=== PATIENT | female | born 1995 | race Caucasian/White ===

== ENCOUNTER → 2018-03-11 15:56 | Outpatient (CLI) | payer BC, SELFPAY ==
[2018-03-11 16:31] LABS: Absolute Lymphocyte Count 1.52 X10^3/ul (0.83-4.51); Absolute Neutrophil Count 5.3 X10^3/uL (2.0-7.7); Basophil# 0.02 X10^3/uL; Basophil% 0.3 % (0-1); Eosinophil# 0.07 X10^3/uL; Hematocrit 39.1 % (37-47); Hemoglobin 13.7 g/dl (12.0-15.0); Lymphocyte # 1.52 X10^3/ul (4.0); Lymphocyte % 20.7 % (19-41); Mean Corpuscular Hgb 29.9 pg (27.0-32.0); Mean Corpuscular Volume 85.4 fL (81-99); Mean Platelet Vol. 10.1 fl (6.2-12.0); Monocyte# 0.41 X10^3/uL; Monocyte% 5.6 % (0-10); Neutrophil # 5.33 X10^3/uL (2.7-7.7); Neutrophil % 72.3 % (47-70); Platelet Count 239 K/mm3 (150-450); RBC Distribution Width CV 12.9 % (11.6-14.6); RBC Distribution Width SD 39.6 fl (35.1-43.9); Red Blood Count 4.58 M/mm3 (4.2-5.4); White Blood Count 7.4 K/mm3 (4.4-11.0)
[2018-03-11 16:36] LABS: POSITIVE COUNT NO; POSITIVE DIFFERENTIAL NO; POSITIVE MORPHOLOGY NO
[2018-03-11 17:32] LABS: HIV - WCH Non-Reactive (Nonreactive); Rubella IgG 75.6 IU/mL
[2018-03-13 14:37] LABS: HEPATITIS B SURFACE AG Negative (Negative)
[2018-03-15 05:19] LABS: Rapid Plasmin Reagin (RPR) NONREACTIVE (NONREACTIVE)
== END ==
PROVIDERS: Family Provider Family Medicine; PCP Family Medicine; Visit Provider Obstetrics & Gynecology
DX: Z34.90 Encounter for supervision of normal pregnancy, unspecified, unspecified trimester (principal)
CPT/HCPCS: 36415; 85025; 86592; 86703; 86762; 86850; 86900; 87340

== ENCOUNTER → 2018-03-11 18:06 | Outpatient (CLI) | payer BC, SELFPAY ==
[2018-03-11 20:10] LABS: Chlamydia Trachomatis by PCR Negative (Negative); Neisserai gonorrhoeae by PCR Negative (Negative); Probe Check PASS; Sample Adequacy Control PASS; Specimen Processing Control PASS
== END ==
PROVIDERS: Family Provider Family Medicine; PCP Family Medicine; Visit Provider Obstetrics & Gynecology
DX: Z34.90 Encounter for supervision of normal pregnancy, unspecified, unspecified trimester (principal)
CPT/HCPCS: 87086; 87491; 87591

== ENCOUNTER → 2018-04-09 11:19 | Outpatient (CLI) | payer BC, SELFPAY | PROVIDERS: Family Provider Family Medicine; PCP Family Medicine; Visit Provider Obstetrics & Gynecology | DX: Z31.5 Encounter for procreative genetic counseling (principal) | CPT/HCPCS: 36415 ==

== ENCOUNTER → 2018-04-23 18:19 | Outpatient (CLI) | payer BC, SELFPAY | PROVIDERS: Family Provider Family Medicine; PCP Family Medicine; Visit Provider Nurse Practitioner Women's Health | DX: O26.899 Other specified pregnancy related conditions, unspecified trimester (principal); R30.0 Dysuria; Z3A.00 Weeks of gestation of pregnancy not specified | CPT/HCPCS: 87086 ==

== ENCOUNTER → 2018-05-08 12:05 | Outpatient (CLI) | payer BC, SELFPAY | PROVIDERS: Family Provider Family Medicine; PCP Family Medicine; Visit Provider Nurse Practitioner Women's Health | DX: Z36.9 Encounter for antenatal screening, unspecified (principal) | CPT/HCPCS: 36415 ==

== ENCOUNTER → 2018-05-21 12:20 | Outpatient (CLI) | payer BC, SELFPAY | PROVIDERS: Family Provider Family Medicine; PCP Family Medicine; Visit Provider Obstetrics & Gynecology | DX: Z34.90 Encounter for supervision of normal pregnancy, unspecified, unspecified trimester (principal) | CPT/HCPCS: 76805 ==

== ENCOUNTER → 2018-07-09 12:20 | Outpatient (CLI) | payer BC, SELFPAY ==
--- NOTE | 2018-07-09 12:23 | US_ITS ---
STUDY: SECOND AND THIRD TRIMESTER OBSTETRICAL ULTRASOUND - LIMITED REASON FOR EXAM: Female, 22 years old. Routine survey. Placenta recheck. LMP: January 07, 2018. PRIOR ULTRASOUND: Comparison is made with prior study dated May 21, 2018. TECHNIQUE: Transabdominal and Transvaginal TECHNICAL QUALITY: Adequate. FINDINGS: There is a single intrauterine fetus. The fetus is in a cephalic presentation. There is demonstrated cardiac activity with a heart rate of 120 bpm. There is a normal amniotic fluid volume. The largest amniotic fluid pocket measures 5.9 cm x 4.6 cm. The amniotic fluid index (RAFITA) is 30.8 cm. The placenta is anterior in location and is not low lying. There are Grade 1 placental changes. The previously seen fluid collection within the placenta as decrease in size. This presently measures 9 mm x 21 mm x 7 mm. This most likely represents a placental hernandez. The cervix measures 3.1 cm in length. BIOMETRY: BPD: 6.35 cm: 25 weeks, 5 days HC: 24.19 cm: 26 weeks, 2 days AC: 22.79 cm: 27 weeks, 2 days FL: 4.82 cm: 26 weeks, 2 days Age by LMP: 26 weeks, 1 days. KAMILAH by LMP: October 14, 2018. age by prior US: 27 weeks, 2 days. KAMILAH by prior US: October 06, 2018. age by current US: 26 weeks, 3 days. KAMILAH by current US: October 12, 2018. Estimated weight: 963 grams, +/- 141 grams, 60 percentile. Gender: Female US/OB Limited With Biometrics IMPRESSION: Single live intrauterine gestation with a mean gestational age of 27 weeks and 2 days. Measurements obtained today from the normal expected range. Decreased size of the placental hernandez. Electronically Signed: Juan Antonio Chandler MD at 11:15 EDT Tel [phone], Service support ,
== END ==
PROVIDERS: Family Provider Family Medicine; PCP Family Medicine; Visit Provider Nurse Practitioner Women's Health
DX: O45.92 Premature separation of placenta, unspecified, second trimester (principal); Z3A.27 27 weeks gestation of pregnancy
CPT/HCPCS: 76816

== ENCOUNTER → 2018-07-23 12:21 | Outpatient (CLI) | payer BC, SELFPAY ==
[2018-07-23 13:21] LABS: Absolute Lymphocyte Count 1.32 X10^3/ul (0.83-4.51); Absolute Neutrophil Count 8.5 X10^3/uL (2.0-7.7); Basophil# 0.02 X10^3/uL; Basophil% 0.2 % (0-1); Eosinophil# 0.07 X10^3/uL; Eosinophils% 0.7 % (0-5); Hematocrit 35.9 % (37-47); Hemoglobin 12.4 g/dl (12.0-15.0); Lymphocyte # 1.32 X10^3/ul (4.0); Lymphocyte % 12.6 % (19-41); Mean Corp Hgb Conc 34.5 g/gl (32-36); Mean Corpuscular Hgb 30.7 pg (27.0-32.0); Mean Corpuscular Volume 88.9 fL (81-99); Mean Platelet Vol. 9.9 fl (6.2-12.0); Monocyte# 0.54 X10^3/uL; Monocyte% 5.1 % (0-10); Neutrophil # 8.49 X10^3/uL (2.7-7.7); Neutrophil % 80.9 % (47-70); Platelet Count 250 K/mm3 (150-450); RBC Distribution Width CV 13.1 % (11.6-14.6); RBC Distribution Width SD 41.5 fl (35.1-43.9); Red Blood Count 4.04 M/mm3 (4.2-5.4); White Blood Count 10.5 K/mm3 (4.4-11.0)
[2018-07-23 13:25] LABS: POSITIVE COUNT NO; POSITIVE DIFFERENTIAL NO; POSITIVE MORPHOLOGY NO
[2018-07-23 13:30] LABS: Glucose Challenge Gest 1H 50g 109 mg/dL (70-140)
== END ==
PROVIDERS: Family Provider Family Medicine; PCP Family Medicine; Referring Provider Obstetrics & Gynecology; Visit Provider Obstetrics & Gynecology
DX: Z34.90 Encounter for supervision of normal pregnancy, unspecified, unspecified trimester (principal)
CPT/HCPCS: 36415; 82950; 85025

== ENCOUNTER → 2018-09-24 16:50 | Outpatient (CLI) | payer BC, SELFPAY ==
[2018-09-24 13:51] VITALS: BMI 29.7
== END ==
PROVIDERS: Family Provider Family Medicine; PCP Family Medicine; Referring Provider Obstetrics & Gynecology; Visit Provider Obstetrics & Gynecology
DX: Z36.85 Encounter for antenatal screening for Streptococcus B (principal)
CPT/HCPCS: 87077; 87081; 87186

== ENCOUNTER 2018-10-08 15:00 | Inpatient (IN) | payer BC, SELFPAY ==
[2018-10-08 14:12] VITALS: BMI 29.7
[2018-10-08 15:24] VITALS: BMI 32.1
[2018-10-08] MEDS: Lactated Ringers 1,000 ML 50 ML IV (15:45)
[2018-10-08 16:03] LABS: Hemoglobin 12.7 g/dl (12.0-15.0); Mean Corp Hgb Conc 33.4 g/gl (32-36); Mean Corpuscular Hgb 28.6 pg (27.0-32.0); Mean Corpuscular Volume 85.6 fL (81-99); Mean Platelet Vol. 10.4 fl (6.2-12.0); Platelet Count 260 K/mm3 (150-450); RBC Distribution Width CV 13.7 % (11.6-14.6); RBC Distribution Width SD 41.7 fl (35.1-43.9); Red Blood Count 4.44 M/mm3 (4.2-5.4); White Blood Count 13.1 K/mm3 (4.4-11.0)
[2018-10-08 16:21] LABS: Scan Indicated on CBC? Y/N NO
[2018-10-08] MEDS: fentaNYL-bupivacaine (epidural) 100 ML BAG EPIDURAL (17:51)
--- NOTE | 2018-10-08 19:14 | PCM.HP.OB ---
- Problem List (1) Active labor at term Status: Acute (2) GBS (group B Streptococcus carrier), +RV culture, currently Status: Acute Comment: pcn in labor (3) Contraception management Status: Acute Qualifiers: Comment: considering IUD (4) Status: Acute Qualifiers: Comment: nipt nl, carrier and ntd screening declined. anatomy scan normal. (5) Supervision of normal Status: Acute Qualifiers: Comment: PRR KAMILAH 10/14/18 Girl Maribel Brian (has 9 year old son) 6w6d on 02/22/18 History Date of Admission: 10/08/18 Final KAMILAH: 10/14/18 Gestational age: 39 Weeks and 1 Days History of this : This is a 22 year-old, at 39 weeks gestational age presents IAL 5 cm dilated, she has had an uncomplicated . Medical History: Medical History (Last Reviewed 10/08/18 @ 14:12 by Freida Francois) PCOS (polycystic ovarian syndrome) E28.2 Surgical History: Surgical History (Last Reviewed 10/08/18 @ 14:12 by Freida Francois) History of placement of ear tubes Z96.22 History of tonsillectomy Z90.89 Allergies No Known Allergies Allergy (Verified 10/08/18 14:12) Home Medications: Home Medications vitamin,calcium,jbsjehof-yvia-djbpv acid tablet 1 tab PO QDAY 03/11/18 Smoking Status: Never smoker Alcohol: None Number of Fetus(es): 1 Heart Tracins moderate variability reactive no decelerations category I tracing\ Craig: regular History Past Pregnancies: Past Pregnancies Delivery Date Name GA/Weeks Outcome Route Weight Gender Labor Length Anesthesia Delivery Location Provider FOB Labs: Mom's Labs & Results 10/08/18 10/08/18 10/08/18 15:45 15:45 17:25 WBC 13.1 H RBC 4.44 Hgb 12.7 Hct 38.0 MCV 85.6 MCH 28.6 MCHC 33.4 RDW 13.7 RDW Differential 41.7 Plt Count 260 MPV 10.4 Blood Type Cancelled A POSITIVE Antibody Screen Cancelled NEGATIVE Course Did the patient receive Yes care? Labs Blood Type: A RH: POSITIVE RPR/VDRL/Syphilis Nonreactive Rubella status Immune HbSAg Negative Date Done: 03/11/18 Chlamydia Negative Gonorrhea Negative HIV/AIDS Non-Reactive Group B Strep: Positive Current Obstetrical History Gestational Diabetes No Incompetent Cervix No Infertility No IUGR No Macrosomia No Hypertension/Pre-eclampsia No Placenta Previa/Abruption No PTL/PROM No Uterine anomaly No Oligohydramnios No Polyhydramnios No Multiple gestation No Past Medical History Asthma No Diabetes No Hypertension No Heart disease No Mitral valve prolapse No Neurologic/Seizure disorder/ No Migraines Kidney disease No Liver disease No Varicosities No Clotting disorders/Hx of DVT No Thyroid Dysfunction No Other medical diseases No Psychiatric disorders No Major trauma No Abnormal PAP smear No Sleep apnea No Mammogram in the last 2 years No Medications Taken During Reason for taking medication [ PCOS METFORMIN] Social History Marital Status: Alleged father BRIAN Hx Smoking No Smoking Status Never smoker Expected Infant Delivery Method: Spontaneous Vaginal Review of Systems Constitutional: Denies: Fever, Malaise Eyes: Denies: Blurred vision, Vision Change HEENT: Denies: Head Aches, Visual Changes Cardiovascular: Denies: Chest Pain, Palpitations Respiratory: Denies: Cough, Shortness of Breath, Wheezing Gastrointestinal: Denies: Abdominal Pain, Diarrhea, Nausea, Vomiting Genitourinary: Denies: Dysuria, Hematuria Musculoskeletal: Denies: Joint Pain, Muscle pain Skin: Denies: Lesions, Rash Neurological: Denies: Blurred vision, Focal weakness, Headaches Psychiatric: Denies: Anxiety, Depression Endocrine: Denies: Heat/ Cold Intolerance Hematologic/ Lymphatic: Denies: Easy Bruising, Easy Bleeding Physical Exam General: Alert, Cooperative, No apparent distress HEENT: Atraumatic, Normocephalic. Negative for: Thyromegaly, Lymphadenopathy Cardiovascular: Regular rate Lungs: Normal air movement Abdomen: Soft, Non Tender, Gravid Neurological: Deep Tendon Reflexes 2+/4 and Symmetrical, Neuro grossly intact. Negative for: Clonus LPN MEDICAL ASSISTANT: Normal external genitalia. Negative for: Vulvar lesions Estimated gestational size: Appropriate for gestational size Presentation: Cephalic Cervix Dilation (cm): 5 Assessment/Plan All Active Problems (Last Reviewed 10/08/18 @ 14:12 by Freida Francois) Active labor at term (Acute) GBS (group B Streptococcus carrier), +RV culture, currently (Acute) Contraception management (Acute) (Acute) Supervision of normal (Acute) screening encounter (Resolved) Subchorionic hematoma (Resolved) Subchorionic hemorrhage (Resolved) pcn needed in delivery (Resolved) This is a 22 year-old, , at 39 weeks gestational age IAL Patient presents IAL, plan expectant management for , pitocin/AROM PRN if needed Pain management: plans epidural. GBS positive plan IV PCN. Management of any complications: none I have reviewed the [facility] and made any clinically relevant updates.
--- NOTE | 2018-10-08 19:17 | HP.PCM_ITS ---
- Problem List (1) Active labor at term Status: Acute (2) GBS (group B Streptococcus carrier), +RV culture, currently Status: Acute Comment: pcn in labor (3) Contraception management Status: Acute Qualifiers: Comment: considering IUD (4) Status: Acute Qualifiers: Comment: nipt nl, carrier and ntd screening declined. anatomy scan normal. (5) Supervision of normal Status: Acute Qualifiers: Comment: PRR KAMILAH 10/14/18 Girl Maribel Brian (has 9 year old son) 6w6d on 02/22/18 History Date of Admission: 10/08/18 Final KAMILAH: 10/14/18 Gestational age: 39 Weeks and 1 Days History of this : This is a 22 year-old, at 39 weeks gestational age presents IAL 5 cm dilated, she has had an uncomplicated . Medical History: Medical History (Last Reviewed 10/08/18 @ 14:12 by Freida Francois) PCOS (polycystic ovarian syndrome) E28.2 Surgical History: Surgical History (Last Reviewed 10/08/18 @ 14:12 by Freida Francois) History of placement of ear tubes Z96.22 History of tonsillectomy Z90.89 Allergies No Known Allergies Allergy (Verified 10/08/18 14:12) Home Medications: Home Medications vitamin,calcium,fhllaqgt-ydzw-lijsa acid tablet 1 tab PO QDAY 03/11/18 Smoking Status: Never smoker Alcohol: None Number of Fetus(es): 1 Heart Tracins moderate variability reactive no decelerations category I tracing\ Skene: regular History Past Pregnancies: Past Pregnancies Delivery Date Name GA/Weeks Outcome Route Weight Gender Labor Length Anesthesia Delivery Location Provider FOB Labs: Mom's Labs & Results 10/08/18 10/08/18 10/08/18 15:45 15:45 17:25 WBC 13.1 H RBC 4.44 Hgb 12.7 Hct 38.0 MCV 85.6 MCH 28.6 MCHC 33.4 RDW 13.7 RDW Differential 41.7 Plt Count 260 MPV 10.4 Blood Type Cancelled A POSITIVE Antibody Screen Cancelled NEGATIVE Course Did the patient receive Yes care? Labs Blood Type: A RH: POSITIVE RPR/VDRL/Syphilis Nonreactive Rubella status Immune HbSAg Negative Date Done: 03/11/18 Chlamydia Negative Gonorrhea Negative HIV/AIDS Non-Reactive Group B Strep: Positive Current Obstetrical History Gestational Diabetes No Incompetent Cervix No Infertility No IUGR No Macrosomia No Hypertension/Pre-eclampsia No Placenta Previa/Abruption No PTL/PROM No Uterine anomaly No Oligohydramnios No Polyhydramnios No Multiple gestation No Past Medical History Asthma No Diabetes No Hypertension No Heart disease No Mitral valve prolapse No Neurologic/Seizure disorder/ No Migraines Kidney disease No Liver disease No Varicosities No Clotting disorders/Hx of DVT No Thyroid Dysfunction No Other medical diseases No Psychiatric disorders No Major trauma No Abnormal PAP smear No Sleep apnea No Mammogram in the last 2 years No Medications Taken During Reason for taking medication [ PCOS METFORMIN] Social History Marital Status: Alleged father BRIAN Hx Smoking No Smoking Status Never smoker Expected Infant Delivery Method: Spontaneous Vaginal Review of Systems Constitutional: Denies: Fever, Malaise Eyes: Denies: Blurred vision, Vision Change HEENT: Denies: Head Aches, Visual Changes Cardiovascular: Denies: Chest Pain, Palpitations Respiratory: Denies: Cough, Shortness of Breath, Wheezing Gastrointestinal: Denies: Abdominal Pain, Diarrhea, Nausea, Vomiting Genitourinary: Denies: Dysuria, Hematuria Musculoskeletal: Denies: Joint Pain, Muscle pain Skin: Denies: Lesions, Rash Neurological: Denies: Blurred vision, Focal weakness, Headaches Psychiatric: Denies: Anxiety, Depression Endocrine: Denies: Heat/ Cold Intolerance Hematologic/ Lymphatic: Denies: Easy Bruising, Easy Bleeding Physical Exam General: Alert, Cooperative, No apparent distress HEENT: Atraumatic, Normocephalic. Negative for: Thyromegaly, Lymphadenopathy Cardiovascular: Regular rate Lungs: Normal air movement Abdomen: Soft, Non Tender, Gravid Neurological: Deep Tendon Reflexes 2+/4 and Symmetrical, Neuro grossly intact. Negative for: Clonus RISK PREVENTION ENGINEER: Normal external genitalia. Negative for: Vulvar lesions Estimated gestational size: Appropriate for gestational size Presentation: Cephalic Cervix Dilation (cm): 5 Assessment/Plan All Active Problems (Last Reviewed 10/08/18 @ 14:12 by Freida Francois) Active labor at term (Acute) GBS (group B Streptococcus carrier), +RV culture, currently (Acute) Contraception management (Acute) (Acute) Supervision of normal (Acute) screening encounter (Resolved) Subchorionic hematoma (Resolved) Subchorionic hemorrhage (Resolved) pcn needed in delivery (Resolved) This is a 22 year-old, , at 39 weeks gestational age IAL Patient presents IAL, plan expectant management for , pitocin/AROM PRN if needed Pain management: plans epidural. GBS positive plan IV PCN. Management of any complications: none I have reviewed the [facility] and made any clinically relevant updates.
[2018-10-08] MEDS: Oxytocin 30 units/NS 500 ml 30 UNITS/500 ML IV.SOLN 334 UNITS IV (19:53)
--- NOTE | 2018-10-08 20:04 | PCM.OB.VAG ---
- Problem List (1) Active labor at term Status: Acute (2) GBS (group B Streptococcus carrier), +RV culture, currently Status: Acute Comment: pcn in labor (3) Contraception management Status: Acute Qualifiers: Comment: considering IUD (4) Status: Acute Qualifiers: Comment: nipt nl, carrier and ntd screening declined. anatomy scan normal. (5) Supervision of normal Status: Acute Qualifiers: Comment: PRR KAMILAH 10/14/18 Girl Maribel Errol (has 9 year old son) 6w6d on 02/22/18 Vaginal Delivery Maternal Presentation: Active Labor ial 5 cm Amniotic Membrane Rupture Type: Artificial Amniotic Fluid Description: Clear Final KAMILAH: 10/14/18 Gestational age: 39 Weeks and 1 Days Date of Procedure: 10/08/18 Pre-Operative Diagnosis: ial Post-Operative Diagnosis: same Surgery/ Procedure Performed: Spontaneous Vaginal Delivery Type of Anesthesia: Epidural Description of Procedure: Patient began pushing and delivered the head in the DELIA presentation. The head was delivered atraumatically. The anterior and posterior shoulders delivered without complication followed by the rest of the and the was placed on the maternal abdomen. Delayed cord clamping was employed for approximately 60 seconds. Cord was clamped and cut and gentle traction was applied to the cord and the placenta delivered spontaneously immediately following it was noted to be intact with three-vessel cord. The perineum and vagina were inspected and noted to have no laceration. EBL was 300 cc. Patient and tolerated delivery well. Presentation: DELIA Placental Delivery Description: Spontaneous Placenta Disposition: [facility] Cord Vessel Description: 3 Vessels Cord Entanglement: None Estimated Blood Loss: 300 Infant A gender: Female (1 minute): 8 (5 minute): 9 Episiotomy Description: None Laceration: None Medications given after delivery: IV Pitocin Complications: None
[2018-10-08] MEDS: Oxytocin 30 units/NS 500 ml 30 UNITS/500 ML IV.SOLN 167 UNITS IV (20:23)
[2018-10-08] MEDS: 0.9% Saline Lock 10 ML Syringe IV (21:23)
[2018-10-09 00:30] VITALS: BP 123/85; PULSE 94; RESP 16; TEMP 36.8
[2018-10-09 04:43] VITALS: BP 115/87; PULSE 90; RESP 16; TEMP 36.6
--- NOTE | 2018-10-09 07:56 | PCM.PN.OB ---
Patient Problems: Active and Suspected Problems (Last Reviewed 10/08/18 @ 14:12 by Freida Francois) Active labor at term (Acute) Subjective: Doing well. No CP, SOB. - Physical Exam General: Alert, Oriented x3 Abdomen: Soft, Non Tender, - - FF below U Vital Signs Temp Pulse Resp BP 97.9 F 90 16 115/87 H 10/09/18 04:43 10/09/18 04:43 10/09/18 04:43 10/09/18 04:43 Oxygen Delivery Method Room Air Weight: 204 lb 12.951 oz Body Mass Index (BMI) 32.1 Intake and Output for Last 24 Hours 10/07/18 10/08/18 10/09/18 23:59 23:59 23:59 Output Total 50 / 50 1800 / 1800 Balance -50 / -50 -1800 / -1800 Laboratory Tests Past 24 Hrs 10/08/18 10/08/18 10/08/18 15:45 15:45 17:25 WBC 13.1 H RBC 4.44 Hgb 12.7 Hct 38.0 MCV 85.6 MCH 28.6 MCHC 33.4 RDW 13.7 RDW Differential 41.7 Plt Count 260 MPV 10.4 Blood Type Cancelled A POSITIVE Antibody Screen Cancelled NEGATIVE Medical Necessity - Tobacco Use Smoking Status: Never smoker Assessment/Plan All Active Problems (Last Reviewed 10/08/18 @ 14:12 by Freida Francois) Active labor at term (Acute) GBS (group B Streptococcus carrier), +RV culture, currently (Acute) Contraception management (Acute) (Acute) Supervision of normal (Acute) screening encounter (Resolved) Subchorionic hematoma (Resolved) Subchorionic hemorrhage (Resolved) pcn needed in delivery (Resolved) PPD #1: Routine care.
[2018-10-09 09:05] VITALS: BP 112/76; PULSE 97; RESP 14; TEMP 36.9
[2018-10-09 12:25] VITALS: BP 115/85; PULSE 89; RESP 16; TEMP 36.5
[2018-10-09] MEDS: Prenatal Vits Tablet 1 TABLET PO (12:54)
[2018-10-09] MEDS: Senna/Docusate Sodium 1 Tablet PO (12:54)
[2018-10-09] MEDS: Acetaminophen 500 MG Tablet 1000 MG PO (12:54)
[2018-10-09 17:00] VITALS: BP 115/78; PULSE 72; RESP 16; TEMP 36.7; O2SAT 98
[2018-10-09 19:50] VITALS: BP 135/83; PULSE 76; RESP 18; TEMP 36.9
[2018-10-09] MEDS: Naproxen 250 MG Tablet PO (19:53)
[2018-10-10 02:26] VITALS: BP 122/86; PULSE 80; RESP 20; TEMP 36.6
--- NOTE | 2018-10-10 08:00 | PCM.PN.OB ---
Patient Problems: Active and Suspected Problems (Last Reviewed 10/08/18 @ 14:12 by Freida Francois) Active labor at term (Acute) Subjective: Doing well. No CP, SOB. Plans home today. Baby with slight jaundice - Physical Exam General: Alert, Oriented x3 Abdomen: Soft, Non Tender, Non-Distended, - - FF below U Vital Signs Temp Pulse Resp BP Pulse Ox 97.8 F 80 20 H 122/86 H 98 10/10/18 02:26 10/10/18 02:26 10/10/18 02:26 10/10/18 02:26 10/09/18 17:00 Oxygen Delivery Method Room Air Weight: 204 lb 12.951 oz Body Mass Index (BMI) 32.1 Intake and Output for Last 24 Hours 10/08/18 10/09/18 10/10/18 23:59 23:59 23:59 Output Total 50 / 50 1800 / 1800 Balance -50 / -50 -1800 / -1800 Medical Necessity - Tobacco Use Smoking Status: Never smoker Assessment/Plan All Active Problems (Last Reviewed 10/08/18 @ 14:12 by Freida Francois) Active labor at term (Acute) GBS (group B Streptococcus carrier), +RV culture, currently (Acute) Contraception management (Acute) (Acute) Supervision of normal (Acute) screening encounter (Resolved) Subchorionic hematoma (Resolved) Subchorionic hemorrhage (Resolved) pcn needed in delivery (Resolved) PPD #2: Routine care. Home today
[2018-10-10 08:02] VITALS: BP 127/95; PULSE 83; RESP 18; TEMP 36.7; O2SAT 98
--- NOTE | 2018-10-10 08:02 | DCINST_ITS ---
Additional Instructions: If you experience any of the following, contact your healthcare provider. * Bleeding that soaks a pad every hour for 2 hours * Fever 100.4 or higher * Unrelieved incision or abdominal pain * Swelling, redness, discharge or bleeding from your incision or episiotomy site * Your incision begins to separate * Problems urinating (including inability to urinate or burning while urinating). * Visual changes * Severe headache * Flu-like symptoms * Pain or redness in one of both of your breasts * Pain, warmth, tenderness or swelling in your legs, especially the calf area * Frequent nausea and vomiting * Symptoms of depression or anxiety If you experience any of the following, call 911 or go to the nearest Emergency Room. * Chest pain * Problems breathing * Seizure activity * Partial or complete paralysis of a body part, slurred speech, weakness or drooping of the face, or a sudden inability to walk or hold your balance Allergies/Adverse Reactions: Allergies No Known Allergies Allergy (Verified 10/08/18 14:12) Medications to take at Discharge vitamin,calcium,gkbwfmth-yqam-hkxoq acid tablet 1 tab PO QDAY 03/11/18 Primary Care Physician: Joey Eduardo III, MD [Primary Care Provider] - Test Results: Test results from this visit will be discussed in further detail at your follow- up appointment, if applicable.
--- NOTE | 2018-10-10 08:02 | PCM.DCVAG ---
Additional Instructions: If you experience any of the following, contact your healthcare provider. Bleeding that soaks a pad every hour for 2 hours Fever 100.4 or higher Unrelieved incision or abdominal pain Swelling, redness, discharge or bleeding from your incision or episiotomy site Your incision begins to separate Problems urinating (including inability to urinate or burning while urinating). Visual changes Severe headache Flu-like symptoms Pain or redness in one of both of your breasts Pain, warmth, tenderness or swelling in your legs, especially the calf area Frequent nausea and vomiting Symptoms of depression or anxiety If you experience any of the following, call 911 or go to the nearest Emergency Room. Chest pain Problems breathing Seizure activity Partial or complete paralysis of a body part, slurred speech, weakness or drooping of the face, or a sudden inability to walk or hold your balance Allergies/Adverse Reactions: Allergies No Known Allergies Allergy (Verified 10/08/18 14:12) Medications to take at Discharge vitamin,calcium,rwdgtwbs-xncw-oofpz acid tablet 1 tab PO QDAY 03/11/18 Primary Care Physician: Joey Eduardo III, MD [Primary Care Provider] - Test Results: Test results from this visit will be discussed in further detail at your follow-up appointment, if applicable.
[2018-10-10 08:30] VITALS: BP 127/82; PULSE 95; RESP 18; TEMP 36.7; O2SAT 98
[2018-10-10] MEDS: Prenatal Vits Tablet 1 TABLET PO (12:25)
--- OUTSIDE RECORDS SUMMARY | 2018-12-10 21:09 | XMS RPT_ITS ---
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 Observed: 10/01/2018 Status: F Source: MANDIE REPORT 2:42 PM [facility] REPOSITORY [facility] [address] [place] [address] OFFICE VISIT Date of Service: 10/01/18 MR#: [id number] Acct: [id number] Name: MIRELLA APODACA Rep #: [id number] : 1995 Provider: Nicole Christiansen MD Age/Sex: 22/F [place] [facility] [place]: Signed Intake Vital Signs10/01/18 Body Mass Index (BMI) 29.7 10/01/18 Height 5 ft 8 in 10/01/18 Weight: 206 lb 10/01/18 Body Mass Index (BMI) 31.3 10/01/18 Blood Pressure 126/82 H Intake Visit Reasons: est ob 37w Chief Complaint: est ob Emergency Crew Supervisor Required: No Is patient in pain?: No Allergies No Known Allergies Allergy (Verified 10/01/18 13:59) Medications vitamin,calcium,rclrprpi-dzmq-pupdu acid tablet 1 tab PO QDAY 03/11/18 [History Confirmed 10/01/18] Last Menstral Period: 01/07/18 Zika: Zika virus screening: Negative : No PFSH PFSH Medical History PCOS (polycystic ovarian syndrome) (Acute) Surgical History History of placement of ear tubes (Acute) History of tonsillectomy (Acute) Family History Grandmother Diabetes Grandfather Myocardial infarction Social History Smoking Status: Never smoker alcohol intake: never substance use type: does not use caffeine: Yes what type of physical activity do you participate in: walking seatbelt use: always do you feel safe at home: Yes additional social history: Yoan Barfield Patient works at [employer] in [place] Pregancy History 1 Elective abortions Hx Para Spontaneous abortions HPI est ob 37w: Details: MIRELLA APODACA is a 22 year old who presents for routine OB visit. OB Visit KAMILAH Calculator Estimated Delivery Date 10/14/18 Based on LMP (certain) 01/07/18 Current WG 38w 1d Number 1 Expected Delivery Route/Plan Specific Issue/Plans flu vaccine: given tdap vaccine: given rhogam: na LARC form signed: declines labor support person: Errol pain management: epidural cut cord/dad catch: YES : yes PP control planned: considering mychal special requests: [] Initial Weight: 179 lb Date Weight BP Urine PFHR FuHt Pres MCTX DilatioFetal SVisit NProvideComment rot ov n t ote r s EGA Ef Gluco faced se 04/09/1179 lb 115/75 Trace 150 14 no vb c 8 4 oz (+ ramping 134 oz) Ne , magaly w 1d gative es NIPT screen ing Visit Notes Visit Date: 10/01/18 no vb lof good fm n roegular ctx Nicole Christiansen MD on 10/01/18 Visit Date: 09/24/18 no vb lof good fm no regular ctx Nicole Christiansen MD on 09/24/18 Visit Date: 09/12/18 no vb lof good fm n oregular ctx Nicole Christiansen MD on 09/12/18 Visit Date: 08/20/18 no vb lof good fm n oregulr ctx Nicole Christiansen MD on 08/20/18 Visit Date: 08/06/18 No VB, LOF. Good FM. Chio Hager NP-C on 08/06/18 Visit Date: 07/23/18 no vb lof good fm no regular ctx cbc gct Nicole Christiansen MD on 07/23/18 Visit Date: 07/02/18 no vb lof cramping good fm. Nicole Christiansen MD on 07/02/18 Visit Date: 06/04/18 Doing well. Now feeling FM. Had MFM US yesterday-will need repeat 4 weeks. c/o vaginal itching and discharge-has had yeast in past OSMANI Ferrer on 06/04/18 Visit Date: 05/08/18 No VB, LOF. 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 Negative vaginal exam. ENRICO FerrerC on 04/23/18 Visit Date: 04/09/18 no vb cramping, desires NIPT screening Nicole Christiansen MD on 04/09/18 ACOG First Trimester First Trimester: Desire for , Alcohol, Tobacco Cessation, Illicit/Recreational Drug/Substance Use, Intimate Partner Violence, Barriers to care, Unstable Housing, Communication Barriers, Environmental/Work Hazards, Anticipated Course of Care, Toxoplasmosis Precations, Use of Any medications, Sexual activity, Exercise, Dental Care, Sauna/Hot tub use, Seat Belt use, Childbirth classes/Hospital facilities, , Travel, Indications for US and Screening for Aneuploidy Diagnostics Diagnostics Labs Hct 35.9 % (37-47) L 07/23/18 Hgb 12.4 g/dl (12.0-15.0) 07/23/18 Obstetrics Ultrasound 07/09/18 Glucose 1 Hr 50 gm 109 mg/dL (70-140) 07/23/18 Miscellaneous Test 05/08/18 Details: HIV: Urine Culture: Sequential Screen: NIPT Screen: Results [email or web address] Office Urine Glucose Negative Last Edit by Freida Francois on 10/01/18 14:05 Office Urine Protein Negative Last Edit by Freida Francois on 10/01/18 14:05 [email or web address] Office Urine Glucose Negative Last Edit by Freida Francois on 10/01/18 14:07 Office Urine Protein Negative Last Edit by Freida Francois on 10/01/18 14:07 Assessment AND Plan Problems 1. GBS (group B Streptococcus carrier), +RV culture, currently O99.820 pcn in labor 2. Encounter for management of intrauterine contraceptive device (IUD), unspecified IUD management type Z30.431 considering IUD 3. 38 weeks gestation of Z3A.38 nipt nl, carrier and ntd screening declined. anatomy scan normal. 4. Encounter for supervision of normal first in third trimester Z34.03 PRR KAMILAH 10/14/18 Girl Maribel Errol (has 9 year old son) 6w6d on 02/22/18 Plan movement and labor precautions reviewed. ACOG trimester education reviewed and updated. see problem list details for updated plan management information and see below for orders placed at this visit. [place] appropriate handout given. Orders Orders: Coding Level of Care Code OB Routine Diagnoses GBS (group B Streptococcus carrier), +RV culture, currently O99.820 Encounter for management of intrauterine contraceptive device (IUD), unspecified IUD management type Z30.431 Contraceptive encounter type: IUD management IUD management: unspecified 38 weeks gestation of Z3A.38 Weeks of gestation: 38 weeks Encounter for supervision of normal first in third trimester Z34.03 Normal : normal first Trimester: third trimester 10/01/18 1442 <Electronically signed by Nicole Christiansen MD> Date Nicole Christiansen MD Cosigner Signature: Date (if applicable) CC: Observed: 09/24/2018 Status: F Source: MANDIE GOTTI, GROUP B 6:04 PM [facility]PT[facility]US REPOSITORY FRANCA Culture ORGANISM 1: Streptococcus agalactiae (B) Amount Growth Growth Streptococcus agalactiae (B): REACTION Ampicillin $ <=0.25 S Clindamycin $$ >=1 R Inducable Clindamycin Resistan - Linezolid $$$$ <=2 S Vancomycin $ 0.5 S (NF) indicates non-formulary drug at [facility]. Approval by Infectious Disease Specialist required before non-formulary drugs may be ordered and/or dispensed. * CLSI guidelines does not recommend testing of cephalosporins. This interpretation is deduced from Beta-lactam/penicillin results. Performed By: #### M100.1800 #### [facility] [address] [place], [address] REFRIGERATING OILER OFFICE VISIT Observed: 09/24/2018 Status: F Source: BRAZORIA REPORT 2:17 PM [facility] REPOSITORY [facility] [address] [place] [address] OFFICE VISIT Date of Service: 09/24/18 MR#: [id number] Acct: [id number] Name: MIRELLA APODACA Rep #: [id number] : 1995 Provider: Nicole Christiansen MD Age/Sex: 22/F [place] [facility] [place]: Signed Intake Vital Signs09/24/18 Body Mass Index (BMI) 29.7 09/24/18 Height 5 ft 8 in 09/24/18 Weight: 206 lb 8 oz 09/24/18 Body Mass Index (BMI) 31.4 09/24/18 Blood Pressure 124/84 H Intake Visit Reasons: est ob 36w Chief Complaint: est ob Emergency Crew Supervisor Required: No Is patient in pain?: No Allergies No Known Allergies Allergy (Verified 09/24/18 13:50) Medications vitamin,calcium,mrctmhpt-fhor-kouie acid tablet 1 tab PO QDAY 03/11/18 [History Confirmed 09/12/18] Last Menstral Period: 01/07/18 Zika: Zika virus screening: Negative : No PFSH PFSH Medical History PCOS (polycystic ovarian syndrome) (Acute) Surgical History History of placement of ear tubes (Acute) History of tonsillectomy (Acute) Family History Grandmother Diabetes Grandfather Myocardial infarction Social History Smoking Status: Never smoker alcohol intake: never substance use type: does not use caffeine: Yes what type of physical activity do you participate in: walking seatbelt use: always do you feel safe at home: Yes additional social history: Yoan Barfield Patient works at [employer] in [place] Pregancy History 1 Elective abortions Hx Para Spontaneous abortions HPI est ob 36w: Details: MIRELLA APODACA is a 22 year old who presents for routine OB visit. OB Visit KAMILAH Calculator Estimated Delivery Date 10/14/18 Based on LMP (certain) 01/07/18 Current WG 37w 1d Number 1 Expected Delivery Route/Plan Specific Issue/Plans flu vaccine: given tdap vaccine: given rhogam: na LARC form signed: declines labor support person: Errol pain management: epidural cut cord/dad catch: YES : yes PP control planned: considering mychal special requests: [] Initial Weight: 179 lb Date Weight BP Urine PrFHR FuHt Pres MoCTX DilationFetal StVisit NoProviderComments E ot v te [place] G Effac lucose ed Visit Notes Visit Date: 09/24/18 no vb lof good fm no regular ctx Nicole Christiansen MD on 09/24/18 Visit Date: 09/12/18 no vb lof good fm n oregular ctx Nicole Christiansen MD on 09/12/18 Visit Date: 08/20/18 no vb lof good fm n oregulr ctx Nicole Christiansen MD on 08/20/18 Visit Date: 08/06/18 No VB, LOF. Good FM. Chio Hager NP-C on 08/06/18 Visit Date: 07/23/18 no vb lof good fm no regular ctx cbc gct Nicole Christiansen MD on 07/23/18 Visit Date: 07/02/18 no vb lof cramping good fm. Nicole Christiansen MD on 07/02/18 Visit Date: 06/04/18 Doing well. Now feeling FM. Had MFM US yesterday-will need repeat 4 weeks. c/o vaginal itching and discharge-has had yeast in past OSMANI Ferrer on 06/04/18 Visit Date: 05/08/18 No VB, LOF. 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 Negative vaginal exam. OSMANI Ferrer on 04/23/18 Visit Date: 04/09/18 no vb cramping, desires NIPT screening Nicole Christiansen MD on 04/09/18 ACOG First Trimester First Trimester: Desire for , Alcohol, Tobacco Cessation, Illicit/Recreational Drug/Substance Use, Intimate Partner Violence, Barriers to care, Unstable Housing, Communication Barriers, Environmental/Work Hazards, Anticipated Course of Care, Toxoplasmosis Precations, Use of Any medications, Sexual activity, Exercise, Dental Care, Sauna/Hot tub use, Seat Belt use, Childbirth classes/Hospital facilities, , Travel, Indications for US and Screening for Aneuploidy Diagnostics Diagnostics Labs Hct 35.9 % (37-47) L 07/23/18 Hgb 12.4 g/dl (12.0-15.0) 07/23/18 Obstetrics Ultrasound 07/09/18 Glucose 1 Hr 50 gm 109 mg/dL (70-140) 07/23/18 Miscellaneous Test 05/08/18 Details: HIV: Urine Culture: Sequential Screen: NIPT Screen: Results [email or web address] Office Urine Glucose Negative Last Edit by Freida Francois on 09/24/18 13:53 Office Urine Protein Negative Last Edit by Freida Francois on 09/24/18 13:53 Assessment AND Plan Problems 1. 37 weeks gestation of Z3A.37 nipt nl, carrier and ntd screening declined. anatomy scan normal. 2. Encounter for supervision of normal first in third trimester Z34.03 PRR KAMILAH 10/14/18 Girl Maribel Errol (has 9 year old son) 6w6d on 02/22/18 3. Encounter for management of intrauterine contraceptive device (IUD), unspecified IUD management type Z30.431 considering IUD Plan movement and labor precautions reviewed. ACOG trimester education reviewed and updated. see problem list details for updated plan management information and see below for orders placed at this visit. [place] appropriate handout given. Orders Orders: Coding Level of Care Code OB Routine Diagnoses 37 weeks gestation of Z3A.37 Weeks of gestation: 37 weeks Encounter for supervision of normal first in third trimester Z34.03 Normal : normal first Trimester: third trimester Encounter for management of intrauterine contraceptive device (IUD), unspecified IUD management type Z30.431 Contraceptive encounter type: IUD management IUD management: unspecified 09/24/18 1417 <Electronically signed by Nicole Christiansen MD> Date Nicole Christiansen MD Cosign Signature: Date (if applicable) CC: REFRIGERATING OILER OFFICE VISIT Observed: 09/12/2018 Status: F Source: MANDIE REPORT 12:05 PM [facility] REPOSITORY [facility] [address] [place] [address] OFFICE VISIT Date of Service: 09/12/18 MR#: [id number] Acct: [id number] Name: MIRELLA APODACA Rep #: [id number] : 1995 Provider: Nicole Christiansen MD Age/Sex: 22/F [place] [facility] [place]: Signed Intake Vital Signs09/12/18 Body Mass Index (BMI) 29.7 09/12/18 Height 5 ft 8 in 09/12/18 Weight: 203 lb 09/12/18 Body Mass Index (BMI) 30.9 09/12/18 Blood Pressure 120/78 Intake Visit Reasons: est ob 34w Emergency Crew Supervisor Required: No Accompanied by: Is patient in pain?: No Allergies No Known Allergies Allergy (Verified 09/12/18 11:57) Medications vitamin,calcium,xdmwprjb-ojzp-ucdwf acid tablet 1 tab PO QDAY 03/11/18 [History Confirmed 09/12/18] Last Menstral Period: 01/07/18 Zika: Zika virus screening: Negative : No PFSH PFSH Medical History PCOS (polycystic ovarian syndrome) (Acute) Surgical History History of placement of ear tubes (Acute) History of tonsillectomy (Acute) Family History Grandmother Diabetes Grandfather Myocardial infarction Social History Smoking Status: Never smoker alcohol intake: never substance use type: does not use caffeine: Yes what type of physical activity do you participate in: walking seatbelt use: always do you feel safe at home: Yes additional social history: Yoan Barfield Patient works at [employer] in [place] Pregancy History 1 Elective abortions Hx Para Spontaneous abortions HPI est ob 34w: Details: MIRELLA APODACA is a 22 year old who presents for routine OB visit. OB Visit KAMILAH Calculator Estimated Delivery Date 10/14/18 Based on LMP (certain) 01/07/18 Current WG 35w 3d Number 1 Expected Delivery Route/Plan Specific Issue/Plans flu vaccine: given tdap vaccine: given rhogam: na LARC form signed: fabio labor support person: Errol pain management: epidural cut cord/dad catch: YES : yes PP control planned: considering mychal special requests: [] Initial Weight: 179 lb Date Weight BP Urine PrFHR FuHt Pres MoCTX DilationFetal StVisit NoProviderComments E ot v te [place] G Effac lucose ed Visit Notes Visit Date: 09/12/18 no vb lof good fm n oregular ctx Nicole Christiansen MD on 09/12/18 Visit Date: 08/20/18 no vb lof good fm n oregulr ctx Nicole Christiansen MD on 08/20/18 Visit Date: 08/06/18 No VB, LOF. Good FM. Chio Hager NP-C on 08/06/18 Visit Date: 07/23/18 no vb lof good fm no regular ctx cbc gct Nicole Christiansen MD on 07/23/18 Visit Date: 07/02/18 no vb lof cramping good fm. Nicole Christiansen MD on 07/02/18 Visit Date: 06/04/18 Doing well. Now feeling FM. Had MFM US yesterday-will need repeat 4 weeks. c/o vaginal itching and discharge-has had yeast in past OSMANI Ferrer on 06/04/18 Visit Date: 05/08/18 No VB, LOF. 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 Negative vaginal exam. OSMANI Ferrer on 04/23/18 Visit Date: 04/09/18 no vb cramping, desires NIPT screening Nicole Christiansen MD on 04/09/18 ACOG First Trimester First Trimester: Desire for , Alcohol, Tobacco Cessation, Illicit/Recreational Drug/Substance Use, Intimate Partner Violence, Barriers to care, Unstable Housing, Communication Barriers, Environmental/Work Hazards, Anticipated Course of Care, Toxoplasmosis Precations, Use of Any medications, Sexual activity, Exercise, Dental Care, Sauna/Hot tub use, Seat Belt use, Childbirth classes/Hospital facilities, , Travel, Indications for US and Screening for Aneuploidy Diagnostics Diagnostics Labs Hct 35.9 % (37-47) L 07/23/18 Hgb 12.4 g/dl (12.0-15.0) 07/23/18 Obstetrics Ultrasound 07/09/18 Glucose 1 Hr 50 gm 109 mg/dL (70-140) 07/23/18 Miscellaneous Test 05/08/18 Details: HIV: Urine Culture: Sequential Screen: NIPT Screen: Results [email or web address] Office Urine Glucose Negative Last Edit by Claudette Yeager on 09/12/18 11:56 Office Urine Protein Negative Last Edit by Claudette Yeager on 09/12/18 11:56 Assessment AND Plan Problems 1. 35 weeks gestation of Z3A.35 nipt nl, carrier and ntd screening declined. anatomy scan normal. 2. Encounter for supervision of normal first in third trimester Z34.03 PRR KAMILAH 10/14/18 Girl Mraibel Errol (has 9 year old son) 6w6d on 02/22/18 3. Encounter for management of intrauterine contraceptive device (IUD), unspecified IUD management type Z30.431 considering IUD Plan movement and labor precautions reviewed. ACOG trimester education reviewed and updated. see problem list details for updated plan management information and see below for orders placed at this visit. [place] appropriate handout given. Orders Orders: Coding Level of Care Code OB Routine Diagnoses 35 weeks gestation of Z3A.35 Weeks of gestation: 35 weeks Encounter for supervision of normal first in third trimester Z34.03 Normal : normal first Trimester: third trimester Encounter for management of intrauterine contraceptive device (IUD), unspecified IUD management type Z30.431 Contraceptive encounter type: IUD management IUD management: unspecified 09/12/18 1205 <Electronically signed by Nicole Christiansen MD> Date Nicole Christiansen MD Cosign Signature: Date (if applicable) CC: REFRIGERATING OILER OFFICE VISIT Observed: 08/20/2018 Status: F Source: MANDIE REPORT 11:26 AM [facility] [address] [place] [address] OFFICE VISIT Date of Service: 08/20/18 MR#: [id number] Acct: [id number] Name: MIRELLA APODACA Rep #: [id number] : 1995 Provider: Nicole Christiansen MD Age/Sex: 22/F [place] [facility] [place]: Signed Intake Vital Signs08/20/18 Body Mass Index (BMI) 29.7 08/20/18 Height 5 ft 8 in 08/20/18 Weight: 198 lb 08/20/18 Body Mass Index (BMI) 30.1 08/20/18 Blood Pressure 136/80 H Intake Visit Reasons: 32 weeks Chief Complaint: est ob Emergency Crew Supervisor Required: No Is patient in pain?: No Allergies No Known Allergies Allergy (Verified 08/20/18 11:12) Medications vitamin,calcium,puetitxm-eknq-sauph acid tablet 1 tab PO QDAY 03/11/18 [History Confirmed 08/20/18] Last Menstral Period: 01/07/18 Zika: Zika virus screening: Negative : No PFSH PFSH Medical History PCOS (polycystic ovarian syndrome) (Acute) Surgical History History of placement of ear tubes (Acute) History of tonsillectomy (Acute) Family History Grandmother Diabetes Grandfather Myocardial infarction Social History Smoking Status: Never smoker alcohol intake: never substance use type: does not use caffeine: Yes what type of physical activity do you participate in: walking seatbelt use: always do you feel safe at home: Yes additional social history: Yoan Ojedaluz marina Patient works at [employer] in [place] Pregancy History 1 Elective abortions Hx Para Spontaneous abortions HPI 32 weeks: Details: MIRELLA APODACA is a 22 year old who presents for routine OB visit. OB Visit KAMILAH Calculator Estimated Delivery Date 10/14/18 Based on LMP (certain) 01/07/18 Current WG 32w 1d Number 1 Expected Delivery Route/Plan Specific Issue/Plans flu vaccine: given tdap vaccine: given rhogam: na LARC form signed: fabio labor support person: Errol pain management: epidural cut cord/dad catch: YES : yes PP control planned: considering mychal special requests: [] Initial Weight: 179 lb Date Weight BP Urine PrFHR FuHt Pres MoCTX DilationFetal StVisit NoProviderComments E ot v te [place] G Effac lucose ed Visit Notes Visit Date: 08/20/18 no vb lof good fm n oregulr ctx Nicole Christiansen MD on 08/20/18 Visit Date: 08/06/18 No VB, LOF. Good FM. ENRICO FerrerC on 08/06/18 Visit Date: 07/23/18 no vb lof good fm no regular ctx cbc gct Nicole Christiansen MD on 07/23/18 Visit Date: 07/02/18 no vb lof cramping good fm. Nicole Christiansen MD on 07/02/18 Visit Date: 06/04/18 Doing well. Now feeling FM. Had MFM US yesterday-will need repeat 4 weeks. c/o vaginal itching and discharge-has had yeast in past OSMANI Ferrer on 06/04/18 Visit Date: 05/08/18 No VB, LOF. 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 Negative vaginal exam. OSMANI Ferrer on 04/23/18 Visit Date: 04/09/18 no vb cramping, desires NIPT screening Nicole Christiansen MD on 04/09/18 ACOG First Trimester First Trimester: Desire for , Alcohol, Tobacco Cessation, Illicit/Recreational Drug/Substance Use, Intimate Partner Violence, Barriers to care, Unstable Housing, Communication Barriers, Environmental/Work Hazards, Anticipated Course of Care, Toxoplasmosis Precations, Use of Any medications, Sexual activity, Exercise, Dental Care, Sauna/Hot tub use, Seat Belt use, Childbirth classes/Hospital facilities, , Travel, Indications for US and Screening for Aneuploidy Diagnostics Diagnostics Labs Hct 35.9 % (37-47) L 07/23/18 Hgb 12.4 g/dl (12.0-15.0) 07/23/18 Obstetrics Ultrasound 07/09/18 Glucose 1 Hr 50 gm 109 mg/dL (70-140) 07/23/18 Miscellaneous Test 05/08/18 Details: HIV: Urine Culture: Sequential Screen: NIPT Screen: Results [email or web address] Office Urine Glucose Negative Last Edit by Freida Francois on 08/20/18 11:15 Office Urine Protein Negative Last Edit by Freida Francois on 08/20/18 11:15 Assessment AND Plan Problems 1. 32 weeks gestation of Z3A.32 nipt nl, carrier and ntd screening declined. anatomy scan normal. 2. Encounter for supervision of normal first in third trimester Z34.03 PRR KAMILAH 10/14/18 Girl Maribel Errol (has 9 year old son) 6w6d on 02/22/18 3. Encounter for management of intrauterine contraceptive device (IUD), unspecified IUD management type Z30.431 considering IUD Plan movement and labor precautions reviewed. ACOG trimester education reviewed and updated. see problem list details for updated plan management information and see below for orders placed at this visit. [place] appropriate handout given. Orders Orders: Coding Level of Care Code OB Routine Diagnoses 32 weeks gestation of Z3A.32 Weeks of gestation: 32 weeks Encounter for supervision of normal first in third trimester Z34.03 Normal : normal first Trimester: third trimester Encounter for management of intrauterine contraceptive device (IUD), unspecified IUD management type Z30.431 Contraceptive encounter type: IUD management IUD management: unspecified 08/20/18 1126 <Electronically signed by Nicole Christiansen MD> Date Nicole Christiansen MD Cosigner Signature: Date (if applicable) CC: REFRIGERATING OILER OFFICE VISIT Observed: 08/15/2018 Status: F Source: MANDIE REPORT 6:05 AM [facility] [address] [place] [address] OFFICE VISIT Date of Service: 08/06/18 MR#: [id number] Acct: [id number] Name: MIRELLA APODACA Rep #: [id number] : 1995 Provider: Nicole Christiansen MD Age/Sex: 22/F Location: [facility] [place] Status: Signed Intake Vital Signs08/06/18 Height 5 ft 8 in 08/06/18 Weight: 196 lb 08/06/18 Body Mass Index (BMI) 29.7 08/06/18 Blood Pressure 118/80 Intake Visit Reasons: 30 weeks Chief Complaint: est ob Is patient in pain?: No Allergies No Known Allergies Allergy (Verified 08/06/18 11:29) Medications vitamin,calcium,ieptlxyl-zdue-siccg acid tablet 1 tab PO QDAY 03/11/18 [History Confirmed 08/06/18] Last Menstral Period: 01/07/18 Zika: Zika virus screening: Negative : No PFSH PFSH Medical History PCOS (polycystic ovarian syndrome) (Acute) Surgical History History of placement of ear tubes (Acute) History of tonsillectomy (Acute) Family History Grandmother Diabetes Grandfather Myocardial infarction Social History Smoking Status: Never smoker alcohol intake: never substance use type: does not use caffeine: Yes what type of physical activity do you participate in: walking seatbelt use: always do you feel safe at home: Yes additional social history: ErrolMiguel Barfield Patient works at [employer] in [place] Pregancy History 1 Elective abortions Hx Para Spontaneous abortions HPI 30 weeks: Details: MIRELLA APODACA is a 22 year old who presents for routine OB visit. OB Visit KAMILAH Calculator Estimated Delivery Date 10/14/18 Based on LMP (certain) 01/07/18 Current WG 31w 3d Number 1 Expected Delivery Route/Plan Specific Issue/Plans flu vaccine: given tdap vaccine: given rhogam: na LARC form signed: fabio labor support person: Errol pain management: epidural cut cord/dad catch: YES : yes PP control planned: considering mychal special requests: [] Initial Weight: 179 lb Date Weight BP Urine PrFHR FuHt Pres MoCTX DilationFetal StVisit NoProviderComments E ot v te [place] G Effac lucose ed Visit Notes Visit Date: 08/06/18 No VB, LOF. Good FM. OSMANI Ferrer on 08/06/18 Visit Date: 07/23/18 no vb lof good fm no regular ctx cbc gct Nicole Christiansen MD on 07/23/18 Visit Date: 07/02/18 no vb lof cramping good fm. Nicole Christiansen MD on 07/02/18 Visit Date: 06/04/18 Doing well. Now feeling FM. Had MFM US yesterday-will need repeat 4 weeks. c/o vaginal itching and discharge-has had yeast in past ENRICO FerrerC on 06/04/18 Visit Date: 05/08/18 No VB, LOF. 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 Negative vaginal exam. OSMANI Ferrer on 04/23/18 Visit Date: 04/09/18 no vb cramping, desires NIPT screening Nicole Christiansen MD on 04/09/18 ACOG First Trimester First Trimester: Desire for , Alcohol, Tobacco Cessation, Illicit/Recreational Drug/Substance Use, Intimate Partner Violence, Barriers to care, Unstable Housing, Communication Barriers, Environmental/Work Hazards, Anticipated Course of Care, Toxoplasmosis Precations, Use of Any medications, Sexual activity, Exercise, Dental Care, Sauna/Hot tub use, Seat Belt use, Childbirth classes/Hospital facilities, , Travel, Indications for US and Screening for Aneuploidy Diagnostics Diagnostics Labs Hct 35.9 % (37-47) L 07/23/18 Hgb 12.4 g/dl (12.0-15.0) 07/23/18 Obstetrics Ultrasound 07/09/18 Chlam trachomat DNA PCR Negative (Negative) 03/11/18 N.gonorrhoeae DNA (PCR) Negative (Negative) 03/11/18 Glucose 1 Hr 50 gm 109 mg/dL (70-140) 07/23/18 Miscellaneous Test 05/08/18 Details: HIV: Urine Culture: Sequential Screen: NIPT Screen: Results [id number] Office Urine Glucose Negative Last Edit by Freida Francois on 08/06/18 11:31 Office Urine Protein Negative Last Edit by Freida Francois on 08/06/18 11:31 Assessment AND Plan Problems 1. Encounter for supervision of normal first in third trimester Z34.03 PRR KAMILAH 10/14/18 Girl Maribel Errol (has 9 year old son) 6w6d on 02/22/18 2. 30 weeks gestation of Z3A.30 nipt nl, carrier and ntd screening declined. anatomy scan normal. 3. Encounter for management of intrauterine contraceptive device (IUD), unspecified IUD management type Z30.431 considering IUD Plan - OSMANI Ferrer Orders placed: none Reviewed of labor precautions, movement/kick counts ACOG trimester education reviewed and updated See problem list details for updated plan of care Gestational age appropriate handout given RTO: 2 weeks Orders Orders: Coding Level of Care Code OB Routine Diagnoses Encounter for supervision of normal first in third trimester Z34.03 Normal : normal first Trimester: third trimester 30 weeks gestation of Z3A.30 Weeks of gestation: 30 weeks Encounter for management of intrauterine contraceptive device (IUD), unspecified IUD management type Z30.431 Contraceptive encounter type: IUD management IUD management: unspecified 08/15/18 0605 <Electronically signed by Nicole Christiansen MD> Date Nicole Christiansen MD 08/06/18 1154<Electronically signed by Chio KEEN> Cosigner Signature: Date (if applicable) Chio Hager CC: REFRIGERATING OILER OFFICE VISIT Observed: 07/23/2018 Status: F Source: MANDIE REPORT 1:14 PM [facility] [address] [place] [address] OFFICE VISIT Date of Service: 07/23/18 MR#: [id number] Acct: [id number] Name: MIRELLA APODACA Rep #: [id number] : 1995 Provider: Nicole Christiansen MD Age/Sex: 22/F [place] [facility] [place]: Signed Intake Vital Signs07/23/18 Height 5 ft 8 in 07/23/18 Weight: 194 lb 2 oz 07/23/18 Body Mass Index (BMI) 29.5 07/23/18 Blood Pressure 118/68 Intake Visit Reasons: 28 weeks Emergency Crew Supervisor Required: No Accompanied by: Is patient in pain?: No Allergies No Known Allergies Allergy (Verified 07/23/18 11:54) Medications vitamin,calcium,vhqgrmmj-upwp-oxomc acid tablet 1 tab PO QDAY 03/11/18 [History Confirmed 07/23/18] Last Menstral Period: 01/07/18 Zika: Zika virus screening: Negative : No PFSH PFSH Medical History PCOS (polycystic ovarian syndrome) (Acute) Surgical History History of placement of ear tubes (Acute) History of tonsillectomy (Acute) Family History Grandmother Diabetes Grandfather Myocardial infarction Social History Smoking Status: Never smoker alcohol intake: never substance use type: does not use caffeine: Yes what type of physical activity do you participate in: walking seatbelt use: always do you feel safe at home: Yes additional social history: Yoan Barfield Patient works at [employer] in [place] Pregancy History 1 Elective abortions Hx Para Spontaneous abortions HPI 28 weeks: Details: MIRELLA APODACA is a 22 year old who presents for routine OB visit. OB Visit KAMILAH Calculator Estimated Delivery Date 10/14/18 Based on LMP (certain) 01/07/18 Current WG 28w 1d Number 1 Expected Delivery Route/Plan Specific Issue/Plans flu vaccine: given tdap vaccine: given rhogam: na LARC form signed: [] labor support person: Errol pain management: epidural cut cord/dad catch: YES : yes PP control planned: [] special requests: [] Initial Weight: 179 lb Date Weight BP Urine PFHR FuHt Pres MCTX DilatioFetal SVisit NProvideComment rot ov n t ote r s EGA Ef Gluco faced se 04/09/1179 lb 115/75 Trace 150 14 no vb c 8 4 oz (+ ramping 134 oz) Ne , magaly w 1d gative es NIPT screen ing Visit Notes Visit Date: 07/23/18 no vb lof good fm no regular ctx cbc gct Nicole Christiansen MD on 07/23/18 Visit Date: 07/02/18 no vb lof cramping good fm. Nicole Christiansen MD on 07/02/18 Visit Date: 06/04/18 Doing well. Now feeling FM. Had MFM US yesterday-will need repeat 4 weeks. c/o vaginal itching and discharge-has had yeast in past OSMANI Ferrer on 06/04/18 Visit Date: 05/08/18 No VB, LOF. 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 Negative vaginal exam. OSMANI Ferrer on 04/23/18 Visit Date: 04/09/18 no vb cramping, desires NIPT screening Nicole Christiansen MD on 04/09/18 ACOG First Trimester First Trimester: Desire for , Alcohol, Tobacco Cessation, Illicit/Recreational Drug/Substance Use, Intimate Partner Violence, Barriers to care, Unstable Housing, Communication Barriers, Environmental/Work Hazards, Anticipated Course of Care, Toxoplasmosis Precations, Use of Any medications, Sexual activity, Exercise, Dental Care, Sauna/Hot tub use, Seat Belt use, Childbirth classes/Hospital facilities, , Travel, Indications for US and Screening for Aneuploidy Diagnostics Diagnostics Labs Blood Type A POSITIVE 03/11/18 Antibody Screen NEGATIVE 03/11/18 Hct Pending 07/23/18 Hgb Pending 07/23/18 Obstetrics Ultrasound 07/09/18 Rubella IgG Antibody 75.6 IU/mL 03/11/18 RPR NONREACTIVE (NONREACTIVE) 03/11/18 Hep Bs Antigen Negative (Negative) 03/11/18 Chlam trachomat DNA PCR Negative (Negative) 03/11/18 N.gonorrhoeae DNA (PCR) Negative (Negative) 03/11/18 Miscellaneous Test 08/22/18 Glucose 1 Hr 50 gm Pending 07/23/18 Details: HIV: Urine Culture: Sequential Screen: NIPT Screen: Results [id number] Office Urine Glucose Negative Last Edit by Carol Ann Mistry on 07/23/18 12:09 Office Urine Protein Negative Last Edit by Carol Ann Mistry on 07/23/18 12:09 Immunizations Boostrix Tdap Performing Provider: Nicole Christiansen MD Administered by: Carol Ann Mistry on 07/23/18 12:06 Dose Route Admin Location Lot Number Expiration Date NDC Managed Care Analyst 0.5 mL IM Left Deltoid [id number] 08/10/19 83899-966-59 [employer] VIS Given Date VIS Publication Date 07/23/18 11/10/14 Eligibility Eligibility Date Assessment AND Plan Problems 1. 28 weeks gestation of Z3A.28 nipt nl, carrier and ntd screening declined. anatomy scan normal. 2. Encounter for supervision of normal first in third trimester Z34.03 PRR KAMILAH 10/14/18 Girl Maribel Norton (has 9 year old son) 6w6d on 02/22/18 Plan ACOG trimester education reviewed and updated. see problem list details for updated plan management information and see below for orders placed at this visit. GA appropriate handout given. Orders Orders: Medications Discontinued: Boostrix Tdap (diphth,pertus(acell),tetanus) Disco0.5 mL IM ONCE #1 0RF NS Z23, Z34.90 ntinued Reason: Office Medication has been Documente d as given Coding Level of Care Code OB Routine Diagnoses 28 weeks gestation of Z3A.28 Weeks of gestation: 28 weeks Encounter for supervision of normal first in third trimester Z34.03 Normal : normal first Trimester: third trimester 07/23/18 1314 <Electronically signed by Nicole Christiansen MD> Date Nicole Christiansen MD Cosigner Signature: Date (if applicable) CC: CBC W/DIFF, AUTOMATED Collected: 07/23/2018 Status: F Source: MANDIE 12:59 PM [facility] REPOSITORY TYPE CODE TESTS RESULT OUT OF RANGE REFERENCE UNITS LAB L100.1000 4.4-11.0 K/mm3 Normal WBC 10.5 LAB L100.1200 4.2-5.4 M/mm3 Low RBC 4.04 LAB L100.1300 12.0-15.0 g/dl Normal HGB 12.4 LAB L100.1400 37-47 % Low HCT 35.9 LAB L100.1500 81-99 fL Normal MCV 88.9 LAB L100.1600 27.0-32.0 pg Normal MCH 30.7 LAB L100.1700 32-36 g/gl Normal MCHC 34.5 LAB L100.1810 11.6-14.6 % Normal RDW CV 13.1 LAB L100.1820 35.1-43.9 fl Normal RDW SD 41.5 LAB L100.1900 150-450 K/mm3 Normal PLT 250 LAB L100.2000 6.2-12.0 fl Normal MPV 9.9 LAB L100.2100 47-70 % High NEUT% 80.9 LAB L100.2200 19-41 % Low LY% 12.6 LAB L100.2300 0-10 % Normal MONO% 5.1 LAB L100.2400 0-5 % Normal EO% 0.7 LAB L100.2500 0-1 % Normal BASO% 0.2 LAB L100.2550 0.0-0.9 % Normal IM GRAN % 0.500 Result Comment: IG% - Immature Granulocytes (promyelocytes, myelocytes and metamyelocytes) > 1% indicates that a LEFT SHIFT is Present. LAB L100.2620 2.0-7.7 X10 3/uL High Absolute Neut 8.5 LAB L100.2720 0.83-4.51 X10 3/ul Normal Absolute Lymph 1.32 Performed By: #### L100.0100 #### [facility] [place], [address] GLUCOSE CHALLENGE GEST Collected: 07/23/2018 Status: F Source: MANDIE 1H 50G 12:59 PM [facility] REPOSITORY Order Comment: Comments: Draw at 1:03pm Comments: Draw at 1:03pm TYPE CODE TESTS RESULT OUT OF RANGE REFERENCE UNITS LAB L501.0250 70-140 mg/dL Normal GLU GEST 109 50g 1H Performed By: #### L501.0250 #### [facility] [address] [place], [address] OB LIMITED WITH Observed: 07/09/2018 Status: F Source: [employer] 12:23 PM [facility] REPOSITORY [facility] [address] [place] [address] OB Limited With Biometrics MR#: [id number] Acct: [id number] Name: MIRELLA APODACA Rep #: [id number] : 1995 F 22 From: Juan Antonio Chandler MD PCP: Joey Eduardo III, MD Status: REG CLI Study: OB Limited With Biometrics Date of Exam: 07/09/18 Exam# [id number] Ordering Dr: Chio Hager SURGICAL CLINICAL REVIEWERJosefina STUDY: SECOND AND THIRD TRIMESTER OBSTETRICAL ULTRASOUND - LIMITED REASON FOR EXAM: Female, 22 years old. Routine survey. Placenta recheck. LMP: January 07, 2018. PRIOR ULTRASOUND: Comparison is made with prior study dated May 21, 2018. TECHNIQUE: Transabdominal and Transvaginal TECHNICAL QUALITY: Adequate. FINDINGS: There is a single intrauterine fetus. The fetus is in a cephalic presentation. There is demonstrated cardiac activity with a heart rate of 120 bpm. There is a normal amniotic fluid volume. The largest amniotic fluid pocket measures 5.9 cm x 4.6 cm. The amniotic fluid index (RAFITA) is 30.8 cm. The placenta is anterior in location and is not low lying. There are Grade 1 placental changes. The previously seen fluid collection within the placenta as decrease in size. This presently measures 9 mm x 21 mm x 7 mm. This most likely represents a placental hernandez. The cervix measures 3.1 cm in length. BIOMETRY: BPD: 6.35 cm: 25 weeks, 5 days HC: 24.19 cm: 26 weeks, 2 days AC: 22.79 cm: 27 weeks, 2 days FL: 4.82 cm: 26 weeks, 2 days Age by LMP: 26 weeks, 1 days. KAMILAH by LMP: October 14, 2018. age by prior US: 27 weeks, 2 days. KAMILAH by prior US: October 06, 2018. age by current US: 26 weeks, 3 days. KAMILAH by current US: October 12, 2018. Estimated weight: 963 grams, +/- 141 grams, 60 percentile. Gender: Female US/OB Limited With Biometrics IMPRESSION: Single live intrauterine gestation with a mean gestational age of 27 weeks and 2 days. Measurements obtained today from the normal expected range. Decreased size of the placental hernandez. Electronically Signed: Juan Antonio Chandler MD at 11:15 EDT Tel [phone], Service support , CC: ZAHIDA Hager; Joey Eduardo III, MD Spray Painter Helper: Signed REFRIGERATING OILER OFFICE VISIT Observed: 07/02/2018 Status: F Source: MANDIE REPORT 11:45 AM [facility] [address] [place] [address] OFFICE VISIT Date of Service: 07/02/18 MR#: [id number] Acct: [id number] Name: MIRELLA APODACA Rep #: [id number] : 1995 Provider: Nicole Christiansen MD Age/Sex: 22/F [place] [facility] [place] Signed Intake Vital Signs07/02/18 Height 5 ft 8 in 07/02/18 Weight: 190 lb 8 oz 07/02/18 Body Mass Index (BMI) 28.9 07/02/18 Blood Pressure 120/64 Intake Visit Reasons: 25 weeks Emergency Crew Supervisor Required: No Is patient in pain?: No Allergies No Known Allergies Allergy (Verified 07/02/18 11:13) Medications vitamin,calcium,lbfwwvho-kmvy-jcjtr acid tablet 1 tab PO QDAY 03/11/18 [History Confirmed 07/02/18] Last Menstral Period: 01/07/18 Zika: Zika virus screening: Negative : No PFSH PFSH Medical History PCOS (polycystic ovarian syndrome) (Acute) Surgical History History of placement of ear tubes (Acute) History of tonsillectomy (Acute) Family History Grandmother Diabetes Grandfather Myocardial infarction Social History Smoking Status: Never smoker alcohol intake: never substance use type: does not use caffeine: Yes what type of physical activity do you participate in: walking seatbelt use: always do you feel safe at home: Yes additional social history: Yoan Barfield Patient works at [employer] in [place] Pregancy History 1 Elective abortions Hx Para Spontaneous abortions HPI 25 weeks: Details: MIRELLA APODACA is a 22 year old who presents for routine OB visit. OB Visit KAMILAH Calculator Estimated Delivery Date 10/14/18 Based on LMP (certain) 01/07/18 Current WG 25w 1d Number 1 Expected Delivery Route/Plan Specific Issue/Plans flu vaccine: given tdap vaccine: [] rhogam: na LARC form signed: [] labor support person: Errol pain management: epidural cut cord/dad catch: YES : yes PP control planned: [] special requests: [] Initial Weight: 179 lb Date Weight BP Urine PrFHR FuHt Pres MoCTX DilationFetal StVisit NoProviderComments E ot v te [place] G Effac lucose ed Visit Notes Visit Date: 07/02/18 no vb lof cramping good fm. Nicole Christiansen MD on 07/02/18 Visit Date: 06/04/18 Doing well. Now feeling FM. Had MFM US yesterday-will need repeat 4 weeks. c/o vaginal itching and discharge-has had yeast in past ENRICO FerrerC on 06/04/18 Visit Date: 05/08/18 No VB, LOF. Doing well ENRICO FerrerC on 05/08/18 Visit Date: 04/23/18 work in for sharp stabbing vaginal pain, No bleeding. Negative vaginal exam. OSMANI Ferrer on 04/23/18 Visit Date: 04/09/18 no vb cramping, desires NIPT screening Nicole Christiansen MD on 04/09/18 AC First Trimester First Trimester: Desire for , Alcohol, Tobacco Cessation, Illicit/Recreational Drug/Substance Use, Intimate Partner Violence, Barriers to care, Unstable Housing, Communication Barriers, Environmental/Work Hazards, Anticipated Course of Care, Toxoplasmosis Precations, Use of Any medications, Sexual activity, Exercise, Dental Care, Sauna/Hot tub use, Seat Belt use, Childbirth classes/Hospital facilities, , Travel, Indications for US and Screening for Aneuploidy Diagnostics Diagnostics Labs Blood Type A POSITIVE 03/11/18 Antibody Screen NEGATIVE 03/11/18 Hct 39.1 % (37-47) 03/11/18 Hgb 13.7 g/dl (12.0-15.0) 03/11/18 Pap Smear Negative 05/23/17 Obstetrics Ultrasound 05/21/18 Rubella IgG Antibody 75.6 IU/mL 03/11/18 RPR NONREACTIVE (NONREACTIVE) 03/11/18 Hep Bs Antigen Negative (Negative) 03/11/18 Chlam trachomat DNA PCR Negative (Negative) 03/11/18 N.gonorrhoeae DNA (PCR) Negative (Negative) 03/11/18 Miscellaneous Test 05/08/18 Details: HIV: Urine Culture: Sequential Screen: NIPT Screen: Office Meds Flucelvax Quad 5508-7468 (PF) Performing Provider: Nicole Christiansen MD Administered by: Samantha Jj on 07/02/18 11:22 Dose Route Admin Location Lot Number Expiration Date [facility] Managed Care Analyst 0.5 mL IM right deltoid [id number] 03/16/19 10276-133-69 SEQIRUS Results [id number] Office Urine Glucose Negative Last Edit by Samantha Jj on 07/02/18 11:19 Office Urine Protein Negative Last Edit by Samantha Jj on 07/02/18 11:19 Assessment AND Plan Problems 1. Encounter for supervision of normal first in second trimester Z34.02 PRR KAMILAH 10/14/18 Girl Maribel Errol (has 9 year old son) 6w6d on 02/22/18 2. 25 weeks gestation of Z3A.25 nipt nl, carrier and ntd screening declined. anatomy scan normal. 3. Subchorionic hematoma in second trimester, single or unspecified fetus O41.8X20; O46.8X2 repeat us at 26 weeks Plan ACOG trimester education reviewed and updated. see problem list details for updated plan management information and see below for orders placed at this visit. GA appropriate handout given. Orders Orders: Medications Discontinued: Flucelvax Quad 1181-5377 (PF) (flu vac qs 2017(4 yr up)CD(P0.5 mL IM ONCE 1 mL 0RF NS Z23 F)) Discontinued Reason: Office Medication has been Doc umented as given Coding Level of Care Code OB Routine Diagnoses Encounter for supervision of normal first in second trimester Z34.02 Normal : normal first Trimester: second trimester 25 weeks gestation of Z3A.25 Weeks of gestation: 25 weeks Subchorionic hematoma in second trimester, single or unspecified fetus O41.8X20; O46.8X2 Fetus number: single or unspecified fetus Trimester: second trimester 07/02/18 1145 <Electronically signed by Nicole Christiansen MD> Date Nicole Christiansen MD Cosigner Signature: Date (if applicable) CC: REFRIGERATING OILER OFFICE VISIT Observed: 06/04/2018 Status: F Source: MANDIE REPORT 2:53 PM [facility] REPOSITORY [facility] [address] [place] [address]. [address] [place] [address] OFFICE VISIT Date of Service: 06/04/18 MR#: [id number] Acct: [id number] Name: MIRELLA APODACA Rep #: [id number] : 1995 Provider: ZAHIDA Hager Age/Sex: 22/F [place] [facility] [place]: Signed Intake Vital Signs06/04/18 Height 5 ft 8 in 06/04/18 Weight: 184 lb 8 oz 06/04/18 Body Mass Index (BMI) 28.0 06/04/18 Blood Pressure 121/73 Intake Visit Reasons: 21 weeks Emergency Crew Supervisor Required: No Is patient in pain?: No Allergies No Known Allergies Allergy (Verified 06/04/18 14:33) Medications vitamin,calcium,wvuonmhi-jtyr-icecz acid tablet 1 tab PO QDAY 03/11/18 [History Confirmed 06/04/18] Last Menstral Period: 01/07/18 Zika: Zika virus screening: Negative : No PFSH PFSH Medical History PCOS (polycystic ovarian syndrome) (Acute) Surgical History History of placement of ear tubes (Acute) History of tonsillectomy (Acute) Family History Grandmother Diabetes Grandfather Myocardial infarction Social History Smoking Status: Never smoker alcohol intake: never substance use type: does not use caffeine: Yes what type of physical activity do you participate in: walking seatbelt use: always do you feel safe at home: Yes additional social history: Yoan Barfield Patient works at [employer] in [place] Pregancy History 1 Elective abortions Hx Para Spontaneous abortions HPI 21 weeks: Details: MIRELLA APODACA is a 22 year old who presents for routine OB visit. OB Visit KAMILAH Calculator Estimated Delivery Date 10/14/18 Based on LMP (certain) 01/07/18 Current WG 21w 1d Number 1 Expected Delivery Route/Plan Specific Issue/Plans flu vaccine: [] tdap vaccine: [] rhogam: na LARC form signed: [] labor support person: Errol pain management: epidural cut cord/dad catch: YES : yes PP control planned: [] special requests: [] Initial Weight: Not Recorded Date Weight BP Urine PrFHR FuHt Pres MoCTX DilationFetal StVisit NoProviderComments E ot v te [place] G Effac lucose ed Visit Notes Visit Date: 06/04/18 Doing well. Now feeling FM. Had MFM US yesterday-will need repeat 4 weeks. c/o vaginal itching and discharge-has had yeast in past OSMANI Ferrer on 06/04/18 Visit Date: 05/08/18 No VB, LOF. 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 Negative vaginal exam. OSMANI Ferrer on 04/23/18 Visit Date: 04/09/18 no vb cramping, desires NIPT screening Nicole Christiansen MD on 04/09/18 ACOG First Trimester First Trimester: Desire for , Alcohol, Tobacco Cessation, Illicit/Recreational Drug/Substance Use, Intimate Partner Violence, Barriers to care, Unstable Housing, Communication Barriers, Environmental/Work Hazards, Anticipated Course of Care, Toxoplasmosis Precations, Use of Any medications, Sexual activity, Exercise, Dental Care, Sauna/Hot tub use, Seat Belt use, Childbirth classes/Hospital facilities, , Travel, Indications for US and Screening for Aneuploidy Diagnostics Diagnostics Labs Blood Type A POSITIVE 03/11/18 Antibody Screen NEGATIVE 03/11/18 Hct 39.1 % (37-47) 03/11/18 Hgb 13.7 g/dl (12.0-15.0) 03/11/18 Pap Smear Negative 05/23/17 Obstetrics Ultrasound 05/21/18 Rubella IgG Antibody 75.6 IU/mL 03/11/18 RPR NONREACTIVE (NONREACTIVE) 03/11/18 Hep Bs Antigen Negative (Negative) 03/11/18 Chlam trachomat DNA PCR Negative (Negative) 03/11/18 N.gonorrhoeae DNA (PCR) Negative (Negative) 03/11/18 Miscellaneous Test 05/08/18 Details: HIV: Urine Culture: Sequential Screen: NIPT Screen: Results [id number] Office Urine Glucose Negative Last Edit by Carol Ann Mistry on 06/04/18 14:41 Office Urine Protein Negative Last Edit by Carol Ann Mistry on 06/04/18 14:41 Assessment AND Plan Problems 1. Encounter for supervision of normal first in first trimester Z34.01 PRR KAMILAH 10/14/18 Girl. Errol (has 9 year old son) 6w6d on 02/22/18 2. 17 weeks gestation of Z3A.17 3. screening encounter Z36.9 NIPT- Low risk, Female, fraction 7.5% AFP: 4. Subchorionic hemorrhage of placenta in second trimester, single or unspecified fetus O41.8X20; O46.8X2 06/03/18: rpt US 4 weeks with MFM and complete anatomy scan(07/04/18) Plan Orders placed: has repeat US with MFM 07/04/18 to complete anatomy and recheck subchorionic hemorrhage Reviewed of labor precautions, movement/kick counts ACOG trimester education reviewed and updated See problem list details for updated plan of care Gestational age appropriate handout given RTO: 4 weeks Orders Orders: Coding Level of Care Code OB Routine Diagnoses Encounter for supervision of normal first in first trimester Z34.01 Normal : normal first Trimester: first trimester 17 weeks gestation of Z3A.17 Weeks of gestation: 17 weeks screening encounter Z36.9 Subchorionic hemorrhage of placenta in second trimester, single or unspecified fetus O41.8X20; O46.8X2 Fetus number: single or unspecified fetus Trimester: second trimester 06/04/18 7739 <Electronically signed by Chio KEEN> Date Chio KEEN Cosigner Signature: Date (if applicable) CC: PROGRESS NOTE Observed: 06/03/2018 Status: COMPLETED Source: [place] 8:30 AM [facility] REPOSITORY Maternal Medicine Consult Date of Service: 06/03/2018 Referring Provider: Nicole Christiansen Primary Care Provider: Joey Eduardo III, MD Reason for Consult: Dr. Nicole Christiansen requests that Mirella be evaluated due to possible bleed seen on outside ultrasound. Jeremias is a 22 y.o. at 21w0d gestation who presents for evaluation of possible hematoma seen on ultrasound during routine anatomic survey. Patient denies bleeding. She does state occasional cramping around groin area. Otherwise, this has been uncomplicated. POBHx: Primigravida PMedHx: PCOS PSurgHx: Ear tubes FMHx: Diabetes (MGM). Denies HTN, defects, genetic disorders or clotting disorders. Meds: PNV All: NKDA Social: Denies alcohol, drug and tobacco use Review of Systems All other systems reviewed and are negative. Physical Exam Vitals: 06/03/18 0850 BP: 110/62 Weight: 83.4 kg (183 lb 14.4 oz) FHT: Positive Presentation: Breech/transverse Ultrasound Results: 1. Single living intrauterine at with biometry consistent with clinical dates. 2. Anatomic survey was limited due to position. However, no gross anomalies were identified. Limited structures include ductal arch, vena cava and 3 vessel view. 3. Amniotic fluid appeared normal. 4. Placenta is normal without evidence of previa. 5. A small subchorionic hemorrhage is noted on the left lateral edge of the placenta, measuring 3.1 x 0.92 x 0.76 cm. Impression: Mirella is a 22 y.o. female who is at 21w0d gestation. 1. Subchorionic Hemorrhage. A subchorionic hemorrhage/hematoma usually occurs with intervillous (maternal) bleeding. Typically these are self-contained and resolve on their own. However, there is a slight increase risk of , growth restriction and abruption. We discussed bleeding precautions and PTL precautions. I advised a follow-up ultrasound in 4 weeks to reassess the bleed and also complete anatomic survey that was limited on today's ultrasound. 2. History of PCOS. Patient states she has PCOS and was on metformin prior to . We discussed an increase risk of insulin resistance and gestational diabetes with this history. The patient states she is scheduled for her gestational diabetes screen around 24 weeks. Recommendations: 1. Follow-up ultrasound in 4 weeks to reevaluate hemorrhage and anatomy. 2. Consider growth ultrasound every 4 weeks if hemorrhage remains. 3. Additional follow-up as clinically indicated. The total patient time of the visit was 15 minutes, of which greater than 50% of the time was spent counseling and coordinating care. GROUP A STREP BY Collected: 05/30/2018 Status: F Source: [place] PCR 1:15 PM [facility] REPOSITORY TYPE CODE TESTS RESULT OUT OF REFERENCE UNITS RANGE LAB GASSRC Throat Swab GAS Specimen Source LAB PCRGAS Negative for Group A Strep Group A PCR Streptococcus by PCR. Result Comment: This test was developed and its performance characteristics determined by [facility] ([facility]). It has not been cleared or approved by the FDA. RT-PL[facility] is regulated under CLIA as qualified to perform high-complexity testing. This test is used for clinical purposes. It should not be regarded as inv estigational or for research. Performed By: #### GASPCR #### [facility] [address] [place], [place] [address] PROGRESS Observed: 05/30/2018 Status: COMPLETED Source: [place] 1:06 PM [facility] REPOSITORY HNO ID: [id number] Author: Edna Anderson Service: (none) Author Type: Physician Sleeve Turner Type: Progress Notes Filed: 05/30/2018 3:24 PM Note Text: 05/30/2018 Patient presents with: Sore Throat: with congestion x 1 day SUBJECTIVE: This is a 22 year old that is here today for Complaint(s) of sore throat and congestion x yesterday. + DUKE ears full. Denies fever/chills, vomiting, SOB, wheezing, vomiting, diarrhea . Currently 20 weeks . PAST MEDICAL HISTORY Diagnosis Date - Acne - PCOS (polycystic ovarian syndrome) ALLERGIES No Known Drug Allergies MEDICATIONS Current Outpatient Prescriptions: vit/iron fum/folic ac ( VITAMIN ORAL) Take 1 tablet by mouth once daily. Bacillus coagulans (PROBIOTIC, B. COAGULANS,) 10 billion cell cpDR Take by mouth. METFORMIN HCL (METFORMIN ORAL) Take 500 mg by mouth once daily. No current facility-administered medications for this visit. SOCIAL HISTORY Social History Marital status: Spouse name: Years of education: Number of children: Social History Main Topics Smoking status: Never Smoker Smokeless tobacco: Never Used Alcohol use: No Drug use: No REVIEW OF SYSTEMS All other reviewed and negative other than HPI. OBJECTIVE: BP 104/64 Pulse 81 Temp 36.9 ?C (98.4 ?F) (Left Tympanic) Resp 16 Wt 82.6 kg (182 lb 3.2 oz) LMP 08/13/2017 SpO2 97% BMI 27.70 kg/m? APPEARANCE Well appearing, alert, in no acute distress, well-hydrated, well nourished. EYES PERRLA, conjunctiva and sclera normal. EARS External ears normal, canals clear. TMs normal DUKE NOSE/SINUS Nares normal. Septum midline. Mucosa normal. No drainage or sinus tenderness. THROAT + posterior oropharyngeal erythema, no exudate. Uvula midline NECK Supple, no adenopathy; HEART RRR with normal S1 and S2 LUNG clear to auscultation, No wheezing, rhonchi, rales. ASSESSMENT/PLAN: 1. Sore throat - ICD9: 462, ICD10: J02.9 - Rapid Strep negative in the office today and Throat culture pending - Discussed supportive care treatment with fluids, rest and analgesia. - The patient may also use warm salt water gargles, throat lozenges and/or OTC throat spray as needed and nasal saline gtts and suction prn. - The patient should follow up in 3-5 days if symptoms persist or worsen - Call back if drooling, increased temperature, symptoms of dehydration and/or still sick in one week - RAPID STREP TEST B/O - GROUP A STREPTOCOCCUS BY PCR The patient indicates understanding of these issues and agrees with the plan. Reviewed red flags and when to seek care sooner. Edna Anderson PA-C CNOV Observed: 05/30/2018 Status: COMPLETED Source: [place] 1:00 PM [facility] REPOSITORY Office Visit (WSTR) MIRELLA APODACA ([id number]) 1995 F Date Time Provider Department 05/30/18 1:00 PM EDNA ANDERSON) WSTR During your visit today, we recorded the following information about you: Temperature Pulse Respiration Blood pressure 98.4 degrees 81/minute minute 104/64 Weight 82.6 kg Edna Anderson PA-C 05/30/2018 3:24 PM Signed 05/30/2018 Patient presents with: Sore Throat: with congestion x 1 day SUBJECTIVE: This is a 22 year old that is here today for Complaint(s) of sore throat and congestion x yesterday. + DUKE ears full. Denies fever/chills, vomiting, SOB, wheezing, vomiting, diarrhea . Currently 20 weeks . PAST MEDICAL HISTORY Diagnosis Date - Acne - PCOS (polycystic ovarian syndrome) ALLERGIES No Known Drug Allergies MEDICATIONS Current Outpatient Prescriptions: vit/iron fum/folic ac ( VITAMIN ORAL) Take 1 tablet by mouth once daily. Bacillus coagulans (PROBIOTIC, B. COAGULANS,) 10 billion cell cpDR Take by mouth. METFORMIN HCL (METFORMIN ORAL) Take 500 mg by mouth once daily. No current facility-administered medications for this visit. SOCIAL HISTORY Social History Marital status: Spouse name: Years of education: Number of children: Social History Main Topics Smoking status: Never Smoker Smokeless tobacco: Never Used Alcohol use: No Drug use: No REVIEW OF SYSTEMS All other reviewed and negative other than HPI. OBJECTIVE: BP 104/64 Pulse 81 Temp 36.9 ?C (98.4 ?F) (Left Tympanic) Resp 16 Wt 82.6 kg (182 lb 3.2 oz) LMP 08/13/2017 SpO2 97% BMI 27.70 kg/m? APPEARANCE Well appearing, alert, in no acute distress, well- hydrated, well nourished. EYES PERRLA, conjunctiva and sclera normal. EARS External ears normal, canals clear. TMs normal DUKE NOSE/SINUS Nares normal. Septum midline. Mucosa normal. No drainage or sinus tenderness. THROAT + posterior oropharyngeal erythema, no exudate. Uvula midline NECK Supple, no adenopathy; HEART RRR with normal S1 and S2 LUNG clear to auscultation, No wheezing, rhonchi, rales. ASSESSMENT/PLAN: 1. Sore throat - ICD9: 462, ICD10: J02.9 - Rapid Strep negative in the office today and Throat culture pending - Discussed supportive care treatment with fluids, rest and analgesia. - The patient may also use warm salt water gargles, throat lozenges and/or OTC throat spray as needed and nasal saline gtts and suction prn. - The patient should follow up in 3-5 days if symptoms persist or worsen - Call back if drooling, increased temperature, symptoms of dehydration and/or still sick in one week - RAPID STREP TEST B/O - GROUP A STREPTOCOCCUS BY PCR The patient indicates understanding of these issues and agrees with the plan. Reviewed red flags and when to seek care sooner. Edna Anderson PA-C Referring Provider: SELF [200] Allergies As of Date: 05/30/2018 Noted Allergy Reaction NO KNOWN DRUG ALLERGIES 12/09/2005 Date Reviewed: 05/30/2018 Reviewed by: Barbara Moctezuma Ma - Fully Assessed Reason for Visit: Sore Throat [200] Cmt: with congestion x 1 day Primary Visit Diagnosis:Sore throat [J02.9] Order(s):RAPID STREP TEST B/O [[id number]] Order #: [id number] GROUP A STREPTOCOCCUS BY PCR [SQGASPCR] Order #: [id number] Prescriptions as of 05/30/2018 Sig: VITAMIN ORAL Take 1 tablet by mouth once d* BACILLUS COAGULANS 10 BILLION* Take by mouth. METFORMIN ORAL Take 500 mg by mouth once jacqueline* Problem List As Of Date 05/30/2018 Noted Resolved Well Adolescent Visit [Z00.129] INVALID FOR* Acne [L70.9] Encounter Status:Closed by EDNA ANDERSON PA-C on 05/30/18 OB ANATOMY SCAN Observed: 05/21/2018 Status: F Source: [place] 12:22 PM [facility] REPOSITORY [facility] Imaging Services [address] [place] [id number] OB Anatomy Scan MR#: [id number] Acct: [id number] Name: MIRELLA APODACA Rep #: [id number] : 1995 F 22 From: Juan Antonio Chandler MD PCP: Joey Eduardo III, MD Status: REG CLI Study: OB Anatomy Scan Date of Exam: 05/21/18 Exam# [id number] Ordering Dr: Chio Hager STUDY: SECOND AND THIRD TRIMESTER OBSTETRICAL ULTRASOUND REASON FOR EXAM: Female, 22 years old. Routine survey. LMP: January 07, 2018. TECHNIQUE: Transabdominal PRIOR ULTRASOUND: None. FINDINGS: There is a single intrauterine fetus. The fetus is in a variable presentation. There is demonstrated cardiac activity with a heart rate of 134 bpm. There is a normal amniotic fluid volume. The largest amniotic fluid pocket measures 4.2 cm x 6.0 cm. The amniotic fluid index (RAFITA) is normal. The placenta is anterior in location and is not low lying. There are Grade 0 placental changes. Focal area of decreased echotexture is seen along the inferior margin of the placenta. This may represent either a subplacental hematoma or fluid collection. Clinical correlation is recommended. A follow-up sonogram is recommended as well. The cervix measures 4.7 cm in length. The bilateral adnexal regions are normal. BIOMETRY: BPD: 4.58 cm: 19 weeks, 6 days HC: 17.46 cm: 20 weeks, 0 days AC: 15.23 cm: 20 weeks, 4 days FL: 3.29 cm: 20 weeks, 2 days CI: 76% FL/BPD: 72% FL/HC: FL/AC: 22% HC/AC: 1.15 age by current US: 20 weeks, 2 days. KAMILAH by current US: October 06, 2018. Estimated weight: 346 grams, +/- 51 grams, 97 %. Age by LMP: 19 weeks, 1 days. KAMILAH by LMP: October 14, 2018. ANATOMY: Gender: Female Cranium: Normal lateral ventricles. Normal choroid plexus. Normal cerebellum. Normal cisterna magna. Normal face, nose and lips. Chest: Normal 4-chamber heart. Abdomen/Pelvis: Normal diaphragm. Normal stomach. Normal abdominal wall. Normal cord insertion. Normal 3 vessel cord. Normal kidneys. Normal bladder. Spine: Normal cervical spine. Normal thoracic spine. Normal lumbar spine. Normal sacrum. Extremities: Normal bilateral upper extremities. Normal bilateral lower extremities. US/OB Anatomy Scan IMPRESSION: Single live intrauterine gestation with a mean gestational age of 20 weeks and 2 days. Focal anechoic area along the posterior inferior aspect of the patella. This measures 1.9 cm x 2.6 cm x 0.6 cm. This may represent either a subplacental hematoma versus a fluid collection. Clinical correlation as well as follow-up sonogram is recommended. Electronically Signed: Juan Antonio Chandler MD at 16:02 EDT Tel [phone], Service support , CC: ZAHIDA Hager; Joey Eduardo III, MD Spray Painter Helper: Signed MISCELLANEOUS LAB Collected: 05/08/2018 Status: F Source: [place] PROCEDURE 12:12 PM [facility] REPOSITORY Order Comment: Comments: [id number] MSAFP SERUM RT Test(s) Ordered: [id number] MSAFP SERUM RT TYPE CODE TESTS RESULT OUT OF RANGE REFERENCE UNITS LAB L801.1541 Normal [facility] LAB TEST Result Comment: TEST RESULT LIMITS AFP, Serum, Open Spina Bifida Results Report Test Results: *Screen Negative* Gest. Age on Collection Date 17.3 weeks Gestat. Age Based On LMP Recalculations are not recommended when gestational dating by LMP and ultrasound are within 10 days. M[age] KAMILAH [age] yr Race Weight 182 lbs Insulin Dep Diabetes No Multiple Gestation No AFP Value 41.0 ng/mL AFP MoM 1.19 OSBR Risk 1 IN 6704 Interpretation Interpretation: Screen Negative This result is screen negative for OSB. The AFP MoM calculated is based on the gestational age provided. MS-AFP can identify up to 80% of open neural tube defects. Closed neural tube defects and some open defects may not be detected by this test. This test does not screen for Down Syndrome or Trisomy 18. If screening for Down Syndrome or Trisomy 18 is desired, contact Genetic Customer Services to discuss available options. The [place] [employer] recommends amniocentesis be offered to women age 35 and older. Comment: Jewels Zafar, Ph.D., [facility] Principal Genetics Supervisor Denture Department References: Available Upon Request. Multiples Of Median Cutoffs For AFP Elevations Sepulveda 2.5 Black 2.8 IDD 2.0 Twins 4.5 Abbreviation Definitions IDD - Insulin Dep Diabetes OSBR - Open Spina Bifida Risk For further inquiries contact [facility] at [phone]. TESTING PERFORMED AT [facility]. ORIGINAL REPORT ON FILE IN LAB CONTAINS ADDITIONAL TEST SITE INFORMATION. Performed By: #### L801.1541 #### [place] [facility] [address] [place], [address] REFRIGERATING OILER OFFICE VISIT Observed: 05/08/2018 Status: F Source: [place] REPORT 12:00 PM [facility] REPOSITORY [facility] [address] [place] [address] OFFICE VISIT Date of Service: 05/08/18 MR#: [id number] Acct: [id number] Name: MIRELLA APODACA Rep #: [id number] : 1995 Provider: ZAHIDA Hager Age/Sex: 22/F [place] [facility] [place]: Signed Intake Vital Signs05/08/18 Height 5 ft 8 in 05/08/18 Weight: 182 lb 8 oz 05/08/18 Body Mass Index (BMI) 27.7 05/08/18 Blood Pressure 112/75 Intake Visit Reasons: 17 weeks Is patient in pain?: No Allergies No Known Allergies Allergy (Verified 05/08/18 11:37) Medications vitamin,calcium,wwjtllul-gyam-gcezr acid tablet 1 tab PO QDAY 03/11/18 [History Confirmed 05/08/18] Last Menstral Period: 01/07/18 Zika: Zika virus screening: Negative : No PFSH PFSH Medical History PCOS (polycystic ovarian syndrome) (Acute) Surgical History History of placement of ear tubes (Acute) History of tonsillectomy (Acute) Family History Grandmother Diabetes Grandfather Myocardial infarction Social History Smoking Status: Never smoker alcohol intake: never substance use type: does not use caffeine: Yes what type of physical activity do you participate in: walking seatbelt use: always do you feel safe at home: Yes additional social history: Yoan Barfield Patient works at [employer] in [place] Pregancy History 1 Elective abortions Hx Para Spontaneous abortions HPI 17 weeks: Details: MIRELLA APODACA is a 22 year old who presents for routine OB visit. OB Visit KAMILAH Calculator Estimated Delivery Date 10/14/18 Based on LMP (certain) 01/07/18 Current WG 17w 2d Number 1 Expected Delivery Route/Plan Specific Issue/Plans flu vaccine: [] tdap vaccine: [] rhogam: [] LARC form signed: [] labor support person: Errol pain management: epidural cut cord/dad catch: [] : yes PP control planned: [] special requests: [] Initial Weight: Not Recorded Date Weight BP Urine PFHR FuHt Pres MCTX DilatioFetal SVisit NProvideComment rot ov n t ote r s EGA Ef Gluco faced se 04/09/1179 lb 115/75 Trace 150 14 no vb c 8 4 oz ramping 13 Ne , magaly w 1d gative es NIPT screen ing Visit Notes Visit Date: 05/08/18 No VB, LOF. Doing well ENRICO FerrerC on 05/08/18 Visit Date: 04/23/18 work in for sharp stabbing vaginal pain, No bleeding. Negative vaginal exam. OSMANI Ferrer on 04/23/18 Visit Date: 04/09/18 no vb cramping, desires NIPT screening Nicole Christiansen MD on 04/09/18 ACOG First Trimester First Trimester: Desire for , Alcohol, Tobacco Cessation, Illicit/Recreational Drug/Substance Use, Intimate Partner Violence, Barriers to care, Unstable Housing, Communication Barriers, Environmental/Work Hazards, Anticipated Course of Care, Toxoplasmosis Precations, Use of Any medications, Sexual activity, Exercise, Dental Care, Sauna/Hot tub use, Seat Belt use, Childbirth classes/Hospital facilities, , Travel, Indications for US and Screening for Aneuploidy Diagnostics Diagnostics Labs Blood Type A POSITIVE 03/11/18 Antibody Screen NEGATIVE 03/11/18 Hct 39.1 % (37-47) 03/11/18 Hgb 13.7 g/dl (12.0-15.0) 03/11/18 Pap Smear Negative 05/23/17 Rubella IgG Antibody 75.6 IU/mL 03/11/18 RPR NONREACTIVE (NONREACTIVE) 03/11/18 Hep Bs Antigen Negative (Negative) 03/11/18 Chlam trachomat DNA PCR Negative (Negative) 03/11/18 N.gonorrhoeae DNA (PCR) Negative (Negative) 03/11/18 Miscellaneous Test 04/09/18 Details: HIV: Urine Culture: Sequential Screen: NIPT Screen: Results [id number] Office Urine Glucose Negative Last Edit by Samantha Jj on 05/08/18 11:41 Office Urine Protein Negative Last Edit by Samantha Jj on 05/08/18 11:41 Assessment AND Plan Problems 1. Encounter for supervision of normal first in first trimester Z34.01 PRR KAMILAH 10/14/18 Girl. Errol (has 9 year old son) 6w6d on 02/22/18 2. 17 weeks gestation of Z3A.17 3. screening encounter Z36.9 NIPT- Low risk, Female, fraction 7.5% AFP: Plan Orders placed: AFP Reviewed of labor precautions, movement/kick counts ACOG trimester education reviewed and updated See problem list details for updated plan of care Gestational age appropriate handout given RTO: 4 weeks Orders Orders: Coding Level of Care Code OB Routine Diagnoses Encounter for supervision of normal first in first trimester Z34.01 Normal : normal first Trimester: first trimester 17 weeks gestation of Z3A.17 Weeks of gestation: 17 weeks screening encounter Z36.9 05/08/18 1200 <Electronically signed by Chio KEEN> Date Chio KEEN Cosigner Signature: Date (if applicable) CC: Observed: 04/23/2018 Status: F Source: [place] CULTURE, URINE 6:20 PM [facility] REPOSITORY Urine Culture Culture exhibits no growth. Performed By: #### M100.0650 #### [facility] [address] [place], [address] REFRIGERATING OILER OFFICE VISIT Observed: 04/23/2018 Status: F Source: [place] REPORT 9:44 AM [facility] REPOSITORY [facility] [address] [place] [address] OFFICE VISIT Date of Service: 04/23/18 MR#: [id number] Acct: [id number] Name: MIRELLA APODACA Rep #: [id number] : 1995 Provider: ZAHIDA Hager Age/Sex: 22/F [place] [facility] [place]: Signed Intake Vital Signs04/23/18 Height 5 ft 8 in 04/23/18 Weight: 180 lb 04/23/18 Body Mass Index (BMI) 27.3 04/23/18 Blood Pressure 118/80 Intake Visit Reasons: VAGINAL PRESSURE Emergency Crew Supervisor Required: No Is patient in pain?: Yes (has been getting a sharp pain in the low pelvic area along with pressure) Pain scale (1-10): 7 Allergies No Known Allergies Allergy (Verified 04/23/18 08:38) Medications vitamin,calcium,vokhvzhh-cgod-edzrl acid tablet 1 tab PO QDAY 03/11/18 [History Confirmed 04/23/18] Last Menstral Period: 01/07/18 Zika: Zika virus screening: Negative PFSH PFSH Medical History PCOS (polycystic ovarian syndrome) (Acute) Surgical History History of placement of ear tubes (Acute) History of tonsillectomy (Acute) Family History Grandmother Diabetes Grandfather Myocardial infarction Social History Smoking Status: Never smoker alcohol intake: never substance use type: does not use caffeine: Yes what type of physical activity do you participate in: walking seatbelt use: always do you feel safe at home: Yes additional social history: Yoan Barfield Patient works at [employer] in [place] Pregancy History 1 Elective abortions Hx Para Spontaneous abortions HPI VAGINAL PRESSURE: Details: MIRELLA APODACA is a 22 year old who presents for work in for pelvic pain-states is sharp stabbing sudden pain in vagina. Comes and goes and then has achy sensation in lower abdomen OB Visit AKMILAH Calculator Estimated Delivery Date 10/14/18 Based on LMP (certain) 01/07/18 Current WG 15w 1d Number 1 Expected Delivery Route/Plan Initial Weight: Not Recorded Date Weight BP Urine PrFHR FuHt Pres MoCTX DilationFetal StVisit NoProviderComments E ot v te GA G Effac lucose ed Visit Notes Visit Date: 04/23/18 work in for sharp stabbing vaginal pain, No bleeding. Negative vaginal exam. Chio Hager NP-C on 04/23/18 Visit Date: 04/09/18 no vb cramping, desires NIPT screening Nicole Christiansen MD on 04/09/18 ACOG First Trimester First Trimester: Desire for , Alcohol, Tobacco Cessation, Illicit/Recreational Drug/Substance Use, Intimate Partner Violence, Barriers to care, Unstable Housing, Communication Barriers, Environmental/Work Hazards, Anticipated Course of Care, Toxoplasmosis Precations, Use of Any medications, Sexual activity, Exercise, Dental Care, Sauna/Hot tub use, Seat Belt use, Childbirth classes/Hospital facilities, , Travel, Indications for US and Screening for Aneuploidy Diagnostics Diagnostics Labs Blood Type A POSITIVE 03/11/18 Antibody Screen NEGATIVE 03/11/18 Hct 39.1 % (37-47) 03/11/18 Hgb 13.7 g/dl (12.0-15.0) 03/11/18 Pap Smear Negative 05/23/17 Rubella IgG Antibody 75.6 IU/mL 03/11/18 RPR NONREACTIVE (NONREACTIVE) 03/11/18 Hep Bs Antigen Negative (Negative) 03/11/18 Chlam trachomat DNA PCR Negative (Negative) 03/11/18 N.gonorrhoeae DNA (PCR) Negative (Negative) 03/11/18 Miscellaneous Test Pending 04/09/18 Details: HIV: Urine Culture: Sequential Screen: NIPT Screen: Exam External Female Exam: normal external appearance, normal appearance of the urethra Urethra: normal appearance of the urethra Speculum Exam - Vagina: normal appearance of the vagina, normal vaginal discharge Speculum Exam - Cervix: normal appearance of the cervix, closed cervix Bimanual Exam- Vagina AND Uterus: normal bimanual exam Bimanual Exam- Adnexa, other: normal adnexae Assessment AND Plan Problems 1. Pelvic pain affecting in first trimester, antepartum O26.891; R10.2 2. 15 weeks gestation of Z3A.15 3. Encounter for supervision of normal first in first trimester Z34.01 PRR KAMILAH 10/14/18 Errol (has 9 year old son) 6w6d on 02/22/18 Plan Urine dip X 10 negative, will still send culture Reassured probably due to normal changes in . RTO routine OB Orders Orders: Coding Level of Care Code OB Routine Diagnoses Pelvic pain affecting in first trimester, antepartum O26.891; R10.2 15 weeks gestation of Z3A.15 Encounter for supervision of normal first in first trimester Z34.01 Normal : normal first Trimester: first trimester 04/23/18 0944 <Electronically signed by Chio KEEN> Date Chio KEEN Cosigner Signature: Date (if applicable) CC: MISCELLANEOUS LAB Collected: 04/09/2018 Status: F Source: [place] PROCEDURE 11:24 AM [facility] REPOSITORY Order Comment: Test(s) Ordered: IQRA SEND OUT BOX TYPE CODE TESTS RESULT OUT OF RANGE REFERENCE UNITS LAB L801.1541 Normal [facility] LAB TEST Result Comment: Sent directly to testing facility per ordering physician. 04/29/18 0924 MYOUNG Performed By: #### L801.1541 #### [facility] [address] [place], [address] REFRIGERATING OILER OFFICE VISIT Observed: 04/09/2018 Status: F Source: [place] REPORT 11:18 AM [facility] REPOSITORY [facility] [address] [place] [address] OFFICE VISIT Date of Service: 04/09/18 MR#: [id number] Acct: [id number] Name: MIRELLA APODACA Rep #: [id number] : 1995 Provider: Nicole Christiansen MD Age/Sex: 22/F [place] [facility]: Signed Intake Vital Signs04/09/18 Height 5 ft 8 in 04/09/18 Weight: 179 lb 4 oz 04/09/18 Body Mass Index (BMI) 27.2 04/09/18 Blood Pressure 115/75 Intake Visit Reasons: 14 WEEKS Emergency Crew Supervisor Required: No Is patient in pain?: No Allergies No Known Allergies Allergy (Verified 04/09/18 10:36) Medications vitamin,calcium,iyrogyaa-ogxb-hhzap acid tablet 1 tab PO QDAY 03/11/18 [History Confirmed 04/09/18] Last Menstral Period: 01/07/18 Zika: Zika virus screening: Negative : No PFSH PFSH Medical History PCOS (polycystic ovarian syndrome) (Acute) Surgical History History of placement of ear tubes (Acute) History of tonsillectomy (Acute) Family History Grandmother Diabetes Grandfather Myocardial infarction Social History Smoking Status: Never smoker alcohol intake: never substance use type: does not use caffeine: Yes what type of physical activity do you participate in: walking seatbelt use: always do you feel safe at home: Yes additional social history: Errol- [place] Patient works at [employer] [place] Pregancy History 1 Elective abortions Hx Para Spontaneous abortions HPI 14 WEEKS: Details: MIRELLA APODACA is a 22 year old who presents for routine OB visit. OB Visit KAMILAH Calculator Estimated Delivery Date 10/14/18 Based on LMP (certain) 01/07/18 Current WG 13w 1d Number 1 Expected Delivery Route/Plan Initial Weight: Not Recorded Date Weight BP Urine PrFHR FuHt Pres MoCTX DilationFetal StVisit NoProviderComments E ot v te GA G Effac lucose ed Visit Notes Visit Date: 04/09/18 no vb cramping, desires NIPT screening Nicole Christiansen MD on 04/09/18 ACOG First Trimester First Trimester: Desire for , Alcohol, Tobacco Cessation, Illicit/Recreational Drug/Substance Use, Intimate Partner Violence, Barriers to care, Unstable Housing, Communication Barriers, Environmental/Work Hazards, Anticipated Course of Care, Toxoplasmosis Precations, Use of Any medications, Sexual activity, Exercise, Dental Care, Sauna/Hot tub use, Seat Belt use, Childbirth classes/Hospital facilities, , Travel, Indications for US and Screening for Aneuploidy Diagnostics Diagnostics Labs Blood Type A POSITIVE 03/11/18 Antibody Screen NEGATIVE 03/11/18 Hct 39.1 % (37-47) 03/11/18 Hgb 13.7 g/dl (12.0-15.0) 03/11/18 Pap Smear Negative 05/23/17 Rubella IgG Antibody 75.6 IU/mL 03/11/18 RPR NONREACTIVE (NONREACTIVE) 03/11/18 Hep Bs Antigen Negative (Negative) 03/11/18 Chlam trachomat DNA PCR Negative (Negative) 03/11/18 N.gonorrhoeae DNA (PCR) Negative (Negative) 03/11/18 Details: HIV: Urine Culture: Sequential Screen: NIPT Screen: Results [id number] Office Urine Glucose Negative Last Edit by Carol Ann Mistry on 04/09/18 10:41 Office Urine Protein Trace Last Edit by Carol Ann Mistry on 04/09/18 10:41 Assessment AND Plan Problems 1. Supervision of normal Z34.90 PRR KAMILAH 10/14/18 Errol (has 9 year old son) 6w6d on 02/22/18 2. Z34.90 3. screening encounter Z36.9 NIPT ordered Plan Orders placed: iqra whitehead ACOG trimester education reviewed and updated. see problem list details for updated plan management information. [place] appropriate handout given. Orders Orders: Medications Discontinued: Coding Level of Care Code OB Routine Diagnoses Supervision of normal Z34.90 Z34.90 screening encounter Z36.9 04/09/18 1118 <Electronically signed by Nicole Christiansen MD> Date Nicole Christiansen MD Cosigner Signature: Date (if applicable) CC: CT/NG WCH BY PCR Collected: 03/11/2018 Status: F Source: [place] 6:11 PM [facility] REPOSITORY TYPE CODE TESTS RESULT OUT OF RANGE REFERENCE UNITS LAB L8200.2100 Negative Normal Chlam Negative Trac PCR LAB L8200.2200 Negative Normal NG by Negative PCR Performed By: #### L8200.1999, M100.0650 #### [facility] [address] [facility] [place], [address] Observed: 03/11/2018 Status: F Source: [place] CULTURE, URINE 6:11 PM [facility] REPOSITORY Urine Culture Culture exhibits no growth. Performed By: #### L8200.1999, M100.0650 #### [facility] [address] [place], [address] CBC W/DIFF, AUTOMATED Collected: 03/11/2018 Status: F Source: [place] 4:02 PM [facility] REPOSITORY TYPE CODE TESTS RESULT OUT OF RANGE REFERENCE UNITS LAB L100.1000 4.4-11.0 K/mm3 Normal WBC 7.4 LAB L100.1200 4.2-5.4 M/mm3 Normal RBC 4.58 LAB L100.1300 12.0-15.0 g/dl Normal HGB 13.7 LAB L100.1400 37-47 % Normal HCT 39.1 LAB L100.1500 81-99 fL Normal MCV 85.4 LAB L100.1600 27.0-32.0 pg Normal MCH 29.9 LAB L100.1700 32-36 g/gl Normal MCHC 35.0 LAB L100.1810 11.6-14.6 % Normal RDW CV 12.9 LAB L100.1820 35.1-43.9 fl Normal RDW SD 39.6 LAB L100.1900 150-450 K/mm3 Normal PLT 239 LAB L100.2000 6.2-12.0 fl Normal MPV 10.1 LAB L100.2100 47-70 % High NEUT% 72.3 LAB L100.2200 19-41 % Normal LY% 20.7 LAB L100.2300 0-10 % Normal MONO% 5.6 LAB L100.2400 0-5 % Normal EO% 1.0 LAB L100.2500 0-1 % Normal BASO% 0.3 LAB L100.2550 0.0-0.9 % Normal IM GRAN % 0.100 Result Comment: IG% - Immature Granulocytes (promyelocytes, myelocytes and metamyelocytes) > 1% indicates that a LEFT SHIFT is Present. LAB L100.2620 2.0-7.7 X10 3/uL Normal Absolute Neut 5.3 LAB L100.2720 0.83-4.51 X10 3/ul Normal Absolute Lymph 1.52 Performed By: #### L100.0100 #### [facility] [address] [place], [address] TYPE AND SCREEN Collected: 03/11/2018 Status: F Source: [place] 4:02 PM [facility] REPOSITORY Order Comment: Reason for Type AND Screen/Red Cells: TYPE CODE TESTS RESULT OUT OF RANGE REFERENCE UNITS LAB B10.0800 A Normal BLOOD TYPE GEL POSITIVE LAB B100.4000 Normal Antibody NEGATIVE Screen Performed By: #### B101.7450, L509.4000, L3890.6005 #### [facility] [address] [place], [place], [address] #### L3100.0390 #### [facility] (refer to report for specific site) refer to report for address and phone number RUBELLA IGG Collected: 03/11/2018 Status: F Source: [place] 4:02 PM [facility] REPOSITORY TYPE CODE TESTS RESULT OUT OF RANGE REFERENCE UNITS LAB L509.4000 IU/mL Normal Rubella IgG 75.6 Result Comment: Antibody results Interpretation of Immune Status < 5 IU/ml Presumed Non-immune 5 - < 10 IU/ml Equivocal > or = 10 IU/ml Presumed Immune Performed By: #### B101.7450, L509.4000, L3890.6005 #### [facility] [address] [facility] [address] #### L3100.0390 #### [facility] (refer to report for specific site) refer to report for address and phone number HIV - WCH Collected: 03/11/2018 Status: F Source: [place] 4:02 PM [facility] REPOSITORY TYPE CODE TESTS RESULT OUT OF RANGE REFERENCE UNITS LAB L3890.6005 Nonreactive Normal HIV - WCH Non-Reactive Performed By: #### B101.7450, L509.4000, L3890.6005 #### [facility] [place], [address] #### L3100.0390 #### [facility] (refer to report for specific site) refer to report for address and phone number HEPATITIS B SURFACE Collected: 03/11/2018 Status: F Source: [place] AG 4:02 PM [facility] REPOSITORY TYPE CODE TESTS RESULT OUT OF RANGE REFERENCE UNITS LAB L3100.0400 Negative Normal HB Negative SURF AG Result Comment: Performed at: - [facility] [id number] Binder Lockstitch: Misha Lancaster PhD, Phone: [phone] Performed By: #### B101.7450, L509.4000, L3890.6005 #### [facility] [place], [address] #### L3100.0390 #### [facility] (refer to report for specific site) refer to report for address and phone number RAPID PLASMIN REAGIN Collected: 03/11/2018 Status: F Source: MANDIE (RPR) 4:02 PM [facility] REPOSITORY TYPE CODE TESTS RESULT OUT OF REFERENCE UNITS RANGE LAB L700.5000 NONREACTIVE NONREACTIVE Normal RPR Performed By: #### L700.5000 #### [place] [facility] [address] [place], [address] REFRIGERATING OILER OFFICE VISIT Observed: 03/11/2018 Status: F Source: MANDIE REPORT 3:59 PM [facility] REPOSITORY [facility] [address] [place] [address] OFFICE VISIT Date of Service: 03/11/18 MR#: [id number] Acct: [id number] Name: MIRELLA APODACA Rep #: [id number] : 1995 Provider: Nicole Christiansen MD Age/Sex: 22/F [place] [facility] [place]: Signed Intake Vital Signs03/11/18 Height 5 ft 8 in 03/11/18 Weight: 179 lb 2 oz 03/11/18 Body Mass Index (BMI) 27.2 03/11/18 Blood Pressure 125/86 Intake Visit Reasons: NOB - LMP 01/07 Chief Complaint: NEW OB Emergency Crew Supervisor Required: No Is patient in pain?: No Allergies No Known Allergies Allergy (Unverified 03/11/18 14:43) Medications metformin ER 750 mg tablet,extended release 24 hr 750 mg PO QDAY 03/11/18 [History Confirmed 03/11/18] vitamin,calcium,opmrvjrw-mnel-agwbg acid tablet 1 tab PO QDAY 03/11/18 [History Confirmed 03/11/18] Last Menstral Period: 01/07/18 Zika: Zika virus screening: Negative : No PFSH PFSH Medical History PCOS (polycystic ovarian syndrome) (Acute) Surgical History History of placement of ear tubes (Acute) History of tonsillectomy (Acute) Family History Grandmother Diabetes Grandfather Myocardial infarction Social History Smoking Status: Never smoker alcohol intake: never substance use type: does not use caffeine: Yes what type of physical activity do you participate in: walking seatbelt use: always do you feel safe at home: Yes additional social history: Yoan [place] Patient works at [employer] in [place] Pregancy History 1 Elective abortions Hx Para Spontaneous abortions HPI NOB - LMP 01/07: Details: IMRELLA APODACA is a 22 year old who presents for New OB visit. OB Visit KAMILAH Calculator Estimated Delivery Date 10/14/18 Based on LMP (certain) 01/07/18 Current WG 9w 0d Number 1 Comments: crl measuring 9w5d viable iup fht 150s Initial Weight: Not Recorded Date Weight BP Urine PrFHR FuHt Pres MoCTX DilationFetal StVisit NoProviderComments E ot v te GA G Effac lucose ed Menstrual History Last Menstral Period: 01/07/18 Reported LMP: definite Normal amount/duration: Yes On hormonal BC at conception: No Antepartum Record Genetic Screening: Congenital Heart Defect: Other, Neural Tube Defect: Other, Hemoglobinopathy Or Carrier: Other, Cystic Fibrosis: Other, Chromosome Abnormality: Other, Mike-Sachs: Other, Hemophilia: Other, Intellectual Disability/Autism: Other, Recurrent Loss/Stillbirth: Other, Other Structural Defect: Other, Other Genetic Disease: Other, Maternal Metabolic Disorder: Other Infection History: Live with someone with TB or Exposed to TB: No, Patient or Partner has history of Genital Herpes: No, Rash or Viral illness since last mentrual period: No, Prior GBS-Infected child: No, History of STD: No, HIV Infection: No, History of Hepatitis: No, Recent travel outside of [place]: No, Concern for Hep exposure: No, Varicella immune: Yes Medical History Medical History: Positive: Infertility (pcos), Negative: Diabetes, Hypertension, Heart disease, Auto-immune disorder, Kidney disease/UTI, Neurologic/epilepsy, Psychiatric, Depression/ depression, Hepatitis/liver disease, Varicosities/phlebitis, Thyroid dysfunction, Trauma/domestic violence, History of blood transfusions, D (Rh) Sensitized, Pulmonary (e.g.,TB,Asthma), Seasonal allergies, Drug/latex allergies/reactions, Breast, Compressor Technician surgery, Operations/hospitalizations, Anesthetic complications, History of abnormal pap, Uterine anomaly/brett, Anti-retroviral treatment, Relevant family history, Other ACOG First Trimester First Trimester: Desire for , Alcohol, Tobacco Cessation, Illicit/Recreational Drug/Substance Use, Intimate Partner Violence, Barriers to care, Unstable Housing, Communication Barriers, Environmental/Work Hazards, Anticipated Course of Care, Nurtrition and weight gain, Toxoplasmosis Precations, Use of Any medications, Sexual activity, Exercise, Dental Care, Sauna/Hot tub use, Seat Belt use, Childbirth classes/Hospital facilities, , Travel, Indications for US and Screening for Aneuploidy ROS Const Denies fever(s), Reports system reviewed and no additional complaints, except as docu, Reports fatigue Eyes Reports system reviewed and no additional complaints, except as docu ENT Reports system reviewed and no additional complaints, except as docu Card Denies chest pain, Denies shortness of breath Resp Reports system reviewed and no additional complaints, except as docu, Denies shortness of breath, Denies cough GI Reports nausea, Denies abdominal pain Reports system reviewed and no additional complaints, except as docu Musc Reports system reviewed and no additional complaints, except as docu Skin/Breast Reports system reviewed and no additional complaints, except as docu Neuro Yes system reviewed and no additional complaints, except as docu Psych Reports system reviewed and no additional complaints, except as docu Endo Reports fatigue, Reports system reviewed and no additional complaints, except as docu Exam Const General: healthy appearing, comfortable, no acute distress Orientation: alert [facility] Head: normal to inspection, atraumatic, normocephalic Ears: external ears normal, hearing grossly normal bilaterally Nose: nares normal, external nose normal Mouth: oral mucosae normal Teeth and gingiva: dentition normal Eyes General: appearance normal, both eyes and all related structures Neck Neck: no lymphadenopathy, supple, normal visual inspection Thyroid: thyroid normal Resp Effort AND Inspection: normal respiratory effort GI Inspection: normal to inspection Palpation: soft, no hepatosplenomegaly General: bladder normal to palpation External Female Exam: normal external appearance, normal appearance of the urethra Urethra: normal appearance of the urethra Speculum Exam - Vagina: normal appearance of the vagina, normal vaginal discharge Speculum Exam - Cervix: normal appearance of the cervix Bimanual Exam- Vagina AND Uterus: bladder normal to palpation, normal bimanual exam, uterus non-tender, other Bimanual Exam- Adnexa, other: adnexae non-tender Skin General: no rashes or lesions noted Neuro Motor: muscle tone normal throughout, no movement abnormalities noted Extrem General: normal to inspection, full ROM Assessment AND Plan Problems 1. Supervision of normal Z34.90 KAMILAH 10/14/18 Errol (has 9 year old son) Plan Patient oriented to practice and discussed care expectations and screenings. [facility] [place] offered to patient. labs and 19-20 week anatomy ultrasound ordered. see problem list details for plan information. Genetic screening offered to patient and patient chose: discussed NIPT vs NT, to decide. discussed she is low risk for genetic abnormalities and patient to decide on what screening to proceed with. Orders Orders: Supplemental Info [facility] book given and patient encouraged to read about nutrition, exercise, weight gain, and food avoidance in . Coding Level of Care Code OB Routine Diagnoses Supervision of normal Z34.90 03/11/18 1559 <Electronically signed by Nicole Christiansen MD> Date Nicole Christiansen MD Cosigner Signature: Date (if applicable) CC: ED PROV NOTE Observed: 12/29/2017 Status: COMPLETED Source: [place] 10:26 PM CLINIC OTHER CAMPUS REPOSITORY O ID: [id number] Author: Shelley Weeks MD Service: Emergency Medicine Author Type: Physician Type: ED Provider Notes Filed: 12/29/2017 10:37 PM Note Text: ED Provider Note Patient Name: Mirella Apodaca SERVICE DATE: 12/29/17 History Patient presents with: Trauma HPI Comments: 22-year-old female presents with a burn on her left arm. 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 This happened approximately an hour and half ago. She said it does hurt it is not draining. She denies any history of skin infections. Wound was covered up when she arrived here. She denies any numbness tingling. History provided by: Patient PAST MEDICAL HISTORY Diagnosis Date - Acne - PCOS (polycystic ovarian syndrome) PAST SURGICAL HISTORY Procedure Laterality Date - EAR TUBES HX - TYMPANOSTOMY LOCAL; UNILATERAL Age 3 FAMILY HISTORY Problem Relation Age of Onset - Diabetes - Diabetes Maternal Grandmother - Heart Maternal Grandfather MT; at age 45 Social History Social History Main Topics - Smoking status: Never Smoker - Smokeless tobacco: Never Used - Alcohol use No - Drug use: No - Sexual activity: Not Asked ALLERGIES Allergen Reactions - No Known Drug Aller* Review of Systems Constitutional: Negative for chills and fever. HENT: Negative for ear pain, rhinorrhea and sore throat. Eyes: Negative for pain and redness. Respiratory: Negative for cough and shortness of breath. Cardiovascular: Negative for chest pain. Gastrointestinal: Negative for abdominal pain, diarrhea, nausea and vomiting. Endocrine: Negative for polydipsia and polyuria. Genitourinary: Negative for dysuria and frequency. Musculoskeletal: Negative for arthralgias and back pain. Skin: Positive for wound. Negative for rash. Allergic/Immunologic: Negative for immunocompromised state. Neurological: Negative for headaches. Hematological: Negative for adenopathy. Psychiatric/Behavioral: Negative for confusion and suicidal ideas. Physical Exam BP 126/93 Pulse 81 Temp (Src) 96.8 (Temporal Artery) Resp 16 Ht 5' 8 (1.73m) Wt 180 lb (81.6kg) SpO2 98% BMI 27.38 kg/(m2). Physical Exam Constitutional: She is oriented to person, place, and time. She appears well-developed and well-nourished. No distress. HENT: Head: Normocephalic and atraumatic. Mouth/Throat: Oropharynx is clear and moist. Eyes: Conjunctivae and EOM are normal. Pupils are equal, round, and reactive to light. Neck: Normal range of motion. Neck supple. Cardiovascular: Normal rate, regular rhythm, normal heart sounds and intact distal pulses. Pulmonary/Chest: Breath sounds normal. No respiratory distress. Abdominal: Soft. Bowel sounds are normal. She exhibits no distension. There is no tenderness. Musculoskeletal: Normal range of motion. She exhibits no edema. Neurological: She is alert and oriented to person, place, and time. No cranial nerve deficit. Skin: Skin is warm and dry. Psychiatric: She has a normal mood and affect. Thought content normal. Nursing note and vitals reviewed. Diagnostic Testing ED Labs Ordered and Reviewed - No data to display Procedures Medical Decision Making / ED Course ED Course Shelley Weeks's Documentation Comment Time this is a well-appearing female with a burn on her left arm located at the triceps muscle. It does look like a second-degree burn due to the blistering. Patient's tetanus will be updated. Silvadene and Xeroform dressing. She plans on submitting worker's comp. Overall wound is clean and does not involve joint space, approximately 1% BSA based on patients palm size. 12/29 2228 She has a localized brought to the left arm. Wound care has been applied. Tetanus updated. Signs and symptoms of infection and the risk of infection discussed with the patient she will return for worsening symptoms she is given [facility] follow-up. Encounter Diagnosis ICD-10-CM 1. Burn T30.0 Plan The Patient was DISCHARGED: Counseled patient regarding suspected diagnosis AND need for follow-up. Discharged home with verbal and written instructions. They were instructed to return as needed for persistent or worsening symptoms or any new concerns. Condition at time of disposition: stable SIGNATURE: MD Shelley Finney MD 12/29/172236 ED NOTE Observed: 12/29/2017 Status: COMPLETED Source: [place] 9:56 PM CLINIC OTHER CAMPUS REPOSITORY HNO ID: [id number] Author: Sindhu (Rn) CLAY Moore Service: Emergency Medicine Author Type: Registered Nurse Type: ED Notes Filed: 12/29/2017 9:57 PM Note Text: Pt arrives to ER for c/o left bicep burn 1 hour ago at work. She was burned by a hot oven. There is a large red area on the posterior bicep of left arm with 2 blistered areas 1 of which is still intact. ALLERGIES ALLERGIES DATE TYPE / CODE NAME / CODE REACTION SEVERITY SOURCE 10/08/2018 Drug No Known Unknown [facility] Allergy/831161231(S Allergies/F0019 [facility] [place]) [address](RXNORM) Hospital Repository 12/09/2005 Drug NO KNOWN DRUG [place] Class/751112163(SNO ALLERGIES Clinic Main MED [facility]) [place] Repository Miscellaneous NO KNOWN [place] Allergy/953213773(S ALLERGIES [facility] Hospital Repository NG/[id number](SNOMED NO KNOWN DRUG [place] [facility]) ALLERGIES [facility] Repository ENCOUNTERS ENCOUNTERS ADMIT/DISCHARGE ACCOUNT NUMBER ADMITTING ENCOUNTER LOCATION SOURCE CLASS 10/08/2018 [id number] Елена, Ambulatory BMSBuilding: [place] Nicole BMS.CF.[facility] Repository 10/08/2018 [id number] Елена, Ambulatory BMSBuilding: [place] Nicole BMS.CF.[facility] Repository 10/08/2018 [id number] Елена, Ambulatory BMSBuilding: [place] Nicole BMS.CF.[facility] Repository 10/08/2018/10/10/19 [id number] Елена, Inpatient [place] 19 Nicole Encounter [facility] ding:WPRoom: Repository [id number]: 1 10/08/2018/10/08/19 [id number] Ambulatory BMSBuilding: [place] 19 BMS.[facility] Repository 10/01/2018/10/01/19 [id number] Ambulatory BMSBuilding: [place] 19 BMS.[facility] Repository 09/24/2018 [id number] Ambulatory [facility] ding:LABSPEC Repository 09/24/2018/09/24/19 [id number] Ambulatory BMSBuilding: [place] 19 BMS.[facility] Repository 09/12/2018/09/12/20 [id number] Ambulatory BMSBuilding: [place] 18 BMS.[facility] Repository 08/20/2018/08/20/20 [id number] Ambulatory BMSBuilding: [place] 18 BMS.[facility] Repository 08/06/2018/08/06/20 [id number] Ambulatory BMSBuilding: [place] 18 BMS.[facility] Repository 07/23/2018 [id number] Ambulatory [facility] ding:PAVLAB Repository 07/23/2018/07/23/20 [id number] Ambulatory BMSBuilding: [place] 18 BMS.[facility] Repository 07/09/2018 [id number] Ambulatory [facility] ding:OPUS Repository 07/02/2018/07/02/20 [id number] Ambulatory BMSBuilding: [place] 18 BMS.[facility] Repository 06/04/2018/06/04/20 [id number] Ambulatory BMSBuilding: [place] 18 BMS.[facility] Repository 06/03/2018/06/03/20 [id number] Ambulatory Building:[address] Repository 06/03/2018/06/03/20 [id number] Ambulatory Building:[address] Repository 05/30/2018/05/31/20 [id number] Ambulatory [address] Main [place] Repository 05/21/2018 [id number] Ambulatory [facility] ding:OPUS Repository 05/08/2018 [id number] Ambulatory [facility] ding:LAB Repository 05/08/2018/05/08/20 [id number] Ambulatory BMSBuilding: [place] 18 BMS.[facility] Repository 04/23/2018 [id number] Ambulatory [facility] ding:LABSPEC Repository 04/23/2018/04/23/20 [id number] Ambulatory BMSBuilding: [place] 18 BMS.[facility] Repository 04/09/2018 [id number] Ambulatory [facility] ding:LAB Repository 04/09/2018/04/09/20 [id number] Ambulatory BMSBuilding: [place] 18 BMS.[facility] Repository 03/11/2018 [id number] Ambulatory [facility] ding:LABSPEC Repository 03/11/2018 [id number] Ambulatory [facility] ding:LAB Repository 03/11/2018/03/11/20 [id number] Ambulatory BMSBuilding: [place] 18 BMS.[facility] Repository 02/21/2018/02/22/20 [id number] Ambulatory [address] ding:[facility] Repository 12/29/2017/12/30/19 [id number] Emergency [address] Other [place] Repository 12/29/2017/12/30/19 [id number] Emergency [address] MEDICAL Repository CENTERBuildi ng:AKEDSRoom : EDBed: 05 PAYERS PAYERS ENCOUNTER GUARANTOR PAYER SUBSCRIBER SOURCE 10/08/2018 MIRELLA SAMMIE Primary ERROL LANDISDOB: [place] [id number] Insurance:ANTHEMPolicy [id number] Community VINE Number: [place] [id number] Repository 05859Tkc: (330) Date:9013-97-00ED [phone] () 545449AMDJXQPLAMAR ALICEA [address]28[address]AV: 10/08/2018 Secondary NOT GIVENUNK [place] Insurance:SELF PAY [facility] Effective Repository Date:2018-10-08 10/08/2018 MIRELLA NORTON LANDISDOB: [place] [id number] N Insurance:ANTHEMPolicy [id number] Community VINE Number: [place] [id number] Repository 28547Mqk: (330) Date:0284-74-73FE [phone] () 811027KLTKRXQ, [place] [address]EM: 10/08/2018 Secondary NOT GIVENUNK [place] Insurance:SELF PAY Community [facility]: Effective Repository Date:2018-10-08 10/08/2018 MIRELLA NORTON LANDISDOB: [place] [id number] N Insurance:ANTHEMPolicy [id number] Community V[place] Number: [place] [id number] Repository 75506Fca: (330) Date:1530-77-96LK [phone] () 987022OMEZZFL, [place] [address]NO: 10/08/2018 Secondary NOT GIVENUNK [place] Insurance:SELF PAY Community [facility]: Effective Repository Date:2018-10-08 10/08/2018 MIRELLA NORTON LANDISDOB: [place] [id number] N Insurance:ANTHEMPolicy [id number] Community V[place] Number: [place] [id number] Repository 30377Egy: (330) Date:7011-83-93LC [phone] () 297608HFHMVAD, [place] [address]MY: 10/08/2018 Secondary NOT GIVENUNK [place] Insurance:SELF PAY Community [facility] Effective Repository Date:2018-07-23 10/08/2018 MIRELLA NICOLEISDOB: [place] [id number] N Insurance:ANTHEMPolicy [id number] Community [place] Number: [place] [id number] Repository 72[address]Uih: (330) Date:5308-49-44PV [phone] () [address] [place] [address]QC: 10/08/2018 Secondary NOT GIVENUNK [place] Insurance:SELF PAY Community [facility]: Effective Repository Date:2018-10-08 10/01/2018 MIRELLA NICOLEISDOB: [place] [id number] N Insurance:ANTHEMPolicy [id number] Community [place] Number: [place] [id number] Repository 33437Grn: (330) Date:7243-16-84WT [phone] () [address] [place] [address]PG: 10/01/2018 Secondary NOT GIVENUNK [place] Insurance:SELF PAY Community [facility]: Effective Repository Date:2018-10-01 09/24/2018 MIRELLA NICOLEISDOB: [place] [id number] N Insurance:ANTHEMPolicy [id number] Community V[place] Number: [place] [id number] Repository 77[address]Aoi: (330) Date:3864-12-13AS [phone] () [id number] [place] [address] 04291PP: 09/24/2018 Secondary NOT GIVENUNK [place] Insurance:SELF PAY Community [facility] Number: Effective Repository Date:2018-09-24 09/24/2018 MIRELLA NICOLEISDOB: [place] [id number] N Insurance:ANTHEMPolicy [id number] Community [place] Number: [place] [id number] Repository 36[address]Odv: (330) Date:0002-97-58KK [phone] () 143116EVQXEGFLAMAR ALICEA [address]GU: 09/24/2018 Secondary NOT GIVENUNK [place] Insurance:SELF PAY Community [facility]: Effective Repository Date:2018-09-24 09/12/2018 MIRELLA NORTON LANDISDOB: [place] [id number] N Insurance:ANTHEMPolicy [id number] Community [place] Number: [place] [id number] Repository 016[address]Nwp: (330) Date:8930-71-02AT [phone] () 875690WAXRNLD, [place] [address]JT: 09/12/2018 Secondary NOT GIVENUNK [place] Insurance:SELF PAY Community [facility]: Effective Repository Date:2018-09-12 08/20/2018 MIRELLA NORTON LANDISDOB: [place] [id number] N Insurance:ANTHEMPolicy [id number] Community VINE Number: [place] [id number] Repository 422[address]Pnz: (330) Date:4995-31-70SC [phone] () 923809QHPVEAILAMAR ALICEA [address]GM: 08/20/2018 Secondary NOT GIVENUNK [place] Insurance:SELF PAY Community [facility] Number: Effective Repository Date:2018-08-20 08/06/2018 MIRELLA NORTON LANDISDOB: [place] [id number] N Insurance:ANTHEMPolicy [id number] Community V[place] Number: [place] [id number] Repository 84331Mvb: (330) Date:3439-03-83VZ [phone] () 391766IVAGMFWLAMAR ALICEA [address]LL: 08/06/2018 Secondary NOT GIVENUNK [place] Insurance:SELF PAY [facility]: Effective Repository Date:2018-08-06 07/23/2018 MIRELLA NORTON LANDISDOB: [place] [id number] N Insurance:ANTHEMPolicy [id number] Community [place] Number: [place] [id number] Repository 11849Skn: (330) Date:7802-65-75GC [phone] () 476987WCMQBEH, [place] [address]AG: 07/23/2018 Secondary NOT GIVENUNK [place] Insurance:SELF PAY Community [facility]: Effective Repository Date:2018-07-23 07/23/2018 MIRELLA NORTON LANDISDOB: [place] [id number] N Insurance:ANTHEMPolicy [id number] Community [place]: [place] [id number] Repository 79621Mkr: (330) Date:7726-23-57MW [phone] () 655698XLSZUXF, [place] [address]DS: 07/23/2018 Secondary NOT GIVENUNK [place] Insurance:SELF PAY Community [facility] Number: Effective Repository Date:2018-07-10 07/09/2018 MIRELLA NORTON LANDISDOB: [place] [id number] N Insurance:ANTHEMPolicy [id number] Community V[place] Number: [place] [id number] Repository 079[address]Wno: (330) Date:3158-19-36EB [phone] () 775918JVIOELO, [place] [address]CZ: 07/09/2018 Secondary NOT GIVENUNK [place] Insurance:SELF PAY Community [facility] Number: Effective Repository Date:2018-07-02 07/02/2018 MIRELLA NORTON LANDISDOB: [place] [id number] N Insurance:ANTHEMPolicy [id number] Community [place] Number: [place] [id number] Repository 23216Wgk: (330) Date:2176-37-98GU [phone] () 084107SMOWWMI, [place] [address]RX: 07/02/2018 Secondary NOT GIVENUNK [place] Insurance:SELF PAY Community [facility] Number: Effective Repository Date:2018-06-20 06/04/2018 MIRELLA NORTON LANDISDOB: [place] [id number] N Insurance:ANTHEMPolicy [id number] Community [place]: [place] [id number] Repository 00394Sqv: (330) Date:7538-76-94TB [phone] () 203501HKHTIWT, [place] [address]GP: 06/04/2018 Secondary NOT GIVENUNK [place] Insurance:SELF PAY Community [facility] Number: Effective Repository Date:2018-06-04 06/03/2018 MIRELLA NORTON LANDISDOB: [facility] LANDISDOB: Insurance:ANTHEMPolicy [id number] [facility] N Number: N VINE Repository [place] [id number], [place] Date: () 06/03/2018 MIRELLA NORTON LANDISDOB: [facility] LANDISDOB: Insurance:ANTHEMPolicy [id number] [facility] N Number: N VINE Repository VINE [id number], [place] Date: [address]Tel: () 05/21/2018 MIRELLA NORTON LANDISDOB: [place] [id number] N Insurance:ANTHEMPolicy [id number] Community [place] Number: [place] [id number] Repository 96738Cku: (330) Date:0645-16-94KL [phone] () 648804HLEIMKA, [place] [address]FG: 05/21/2018 Secondary NOT GIVENUNK [place] Insurance:SELF PAY Community [facility] Number: Effective Repository Date:2018-04-23 05/08/2018 MIRELLA NORTON LANDISDOB: [place] [id number] N Insurance:ANTHEMPolicy [id number] Community [place]: [place] [id number] Repository 760[address]Rcg: (330) Date:4997-65-80QN [phone] () 305807RPPFSYX, [place] [address]KL: 05/08/2018 Secondary NOT GIVENUNK [place] Insurance:SELF PAY Community [facility] Number: Effective Repository Date:2018-05-08 05/08/2018 MIRELLA NORTON LANDISDOB: [place] [id number] N Insurance:ANTHEMPolicy [id number] Community [place] Number: [place] [id number] Repository 32756Owm: (330) Date:2505-88-17WZ [phone] () 162811OVNVUQP, [place] [address]VM: 05/08/2018 Secondary NOT GIVENUNK [place] Insurance:SELF PAY Community [facility] Number: Effective Repository Date:2018-04-09 04/23/2018 MIRELLA NORTON LANDISDOB: [place] [id number] N Insurance:ANTHEMPolicy [id number] Community [place]: [place] [id number] Repository 96738Jol: (330) Date:1229-76-12JI [phone] () 885144SQPWMIN, [place] [address]NT: 04/23/2018 Secondary NOT GIVENUNK [place] Insurance:SELF PAY Community [facility] Number: Effective Repository Date:2018-04-23 04/23/2018 MIRELLA NORTON LANDISDOB: [place] [id number] N Insurance:ANTHEMPolicy [id number] Community [place]: [place] [id number] Repository 18151Mfa: (330) Date:0694-31-89TT [phone] () 298937BTCTSGR, [place] [address]RG: 04/23/2018 Secondary NOT GIVENUNK [place] Insurance:SELF PAY Community [facility] Number: Effective Repository Date:2018-04-23 04/09/2018 MIRELLA NORTON LANDISDOB: [place] [id number] N Insurance:ANTHEMPolicy [id number] Community [place]: [place] [id number] Repository 85152Omj: (330) Date:7068-43-97RS [phone] () 118716OLQUJRX, [place] [address]WM: 04/09/2018 Secondary NOT GIVENUNK [place] Insurance:SELF PAY Community [facility] Number: Effective Repository Date:2018-04-09 04/09/2018 MIRELLA NORTON LANDISDOB: [place] [id number] N Insurance:ANTHEMPolicy [id number] Community [place]: [place] [id number] Repository 81863Ies: (330) Date:3945-78-75FH [phone] () 666086ZQRNZCM, [place] [address]HG: 04/09/2018 Secondary NOT GIVENUNK [place] Insurance:SELF PAY Community [facility] Number: Effective Repository Date:2018-04-09 03/11/2018 MIRELLA NORTON LANDISDOB: [place] [id number] N Insurance:ANTHEMPolicy [id number] Community [place]: [place] [id number] Repository 76208Xog: (330) Date:7893-11-56TU [phone] () 304321HSMNSKY, [place] [address]LV: 03/11/2018 Secondary NOT GIVENUNK [place] Insurance:SELF PAY Community [facility] Number: Effective Repository Date:2018-03-11 03/11/2018 MIRELLA Norton LandisDOB: [place] [id number] Insurance:ANTHEMPolicy [id number] Community [place]: [place] [id number] Repository 91717Vit: (330) Date:7917-76-01ZZ [phone] () 140769HXFUZSS, [place] [address]SU: 03/11/2018 Secondary NOT GIVENUNK [place] Insurance:SELF PAY [facility] Number: Effective Repository Date:2018-03-11 03/11/2018 MIRELLA COCHRAN [facility] Errol LandisDOB: [place] [id number] [place] Insurance:ANTHEMPolicy [id number] Community VINE Number: [facility] [address] [id number] Repository 68832Tab: (330) Date:3544-78-78BH [phone] () [address] [place] [address] [place] [address]QI: 03/11/2018 Secondary NOT GIVENUNK [place] Insurance:SELF PAY [facility]: Effective Repository Date:2018-03-11 02/21/2018 [facility] Insurance:ANTHEM BLUE LANDISDOB: [facility] N [facility] [id number] Repository [place]: [place] [id number] [place], [place] [address]Nlu: (330) Date:2018-02-20 534[address]Aeo: 8444-34-68Zpei [phone] ()Tel: (330) Name:Brent LUONG () () [id number] [place] [phone] () [address]TN: 12/29/2017 MIRELLA Andrade [facility] LANDISDOB: [facility] Number: [id number] Repository VINE [id number] [place], [place] Date: [address]Hcz: ()
== END 2018-10-10 14:10 | disposition home or self-care (01) | DRG 807 ==
PROVIDERS: Admitting Provider Obstetrics & Gynecology; Family Provider Family Medicine; PCP Family Medicine; Referring Provider Obstetrics & Gynecology; Visit Provider Obstetrics & Gynecology
DX: O99.824 Streptococcus B carrier state complicating childbirth (principal); Z37.0 Single live birth; O99.284 Endocrine, nutritional and metabolic diseases complicating childbirth; E28.2 Polycystic ovarian syndrome; Z3A.39 39 weeks gestation of pregnancy
CPT/HCPCS: 36415; 59025; 59050; 85027; 86850; 86900; 99218; J7120; A4216; G0378

== ENCOUNTER → 2018-11-19 14:28 | Outpatient (CLI) | payer BC, SELFPAY ==
[2018-11-19 13:39] VITALS: BMI 32.1
[2018-11-19 15:13] LABS: Thyroid Stim Hormone (TSH) 1.87 uIU/mL (0.358-3.74)
== END ==
PROVIDERS: Family Provider Family Medicine; PCP Family Medicine; Referring Provider Obstetrics & Gynecology; Visit Provider Obstetrics & Gynecology
DX: E01.0 Iodine-deficiency related diffuse (endemic) goiter (principal)
CPT/HCPCS: 36415; 84439; 84443

== ENCOUNTER → 2018-11-25 12:14 | Outpatient (CLI) | payer BC, SELFPAY ==
[2018-11-19 13:39] VITALS: BMI 32.1
--- NOTE | 2018-11-25 12:16 | US_ITS ---
STUDY: THYROID ULTRASOUND REASON FOR EXAM: Female, 23 years old. Thyromegaly on physical examination. TECHNIQUE: Ultrasound evaluation of the thyroid was performed with real-time and static mae-scale imaging. COMPARISON: None. FINDINGS: RIGHT LOBE: The right thyroid gland measures 5.7 x 2.0 x 1.7 cm. Solitary cyst measuring 3 mm, superior pole. Otherwise normal echotexture and vascularity. LEFT LOBE: The left gland measures 5.5 x 2.2 x 1.9 cm. No nodules or cyst. Normal echotexture and vascularity. ISTHMUS: The isthmus measures 3 mm, normal echotexture. . US/Thyroid IMPRESSION: 3 mm benign right thyroid cyst. Otherwise normal sonographic appearance of the thyroid gland. Electronically Signed: Victor M Harvey MD at 17:33 EDT Tel , Service support ,
== END ==
PROVIDERS: Family Provider Family Medicine; PCP Family Medicine; Referring Provider Obstetrics & Gynecology; Visit Provider Obstetrics & Gynecology
DX: E01.0 Iodine-deficiency related diffuse (endemic) goiter (principal)
CPT/HCPCS: 76536

== ENCOUNTER → 2020-04-06 16:27 | Outpatient (CLI) | payer BC, SELFPAY ==
[2020-04-06 13:00] VITALS: BMI 32.1
[2020-04-09 20:09] LABS: HPV Reflexed? NOT INDICATED
== END ==
PROVIDERS: PCP Family Medicine; Referring Provider Nurse Practitioner Women's Health; Visit Provider Nurse Practitioner Women's Health
DX: Z12.4 Encounter for screening for malignant neoplasm of cervix (principal)
CPT/HCPCS: 88175; G0145

== ENCOUNTER → 2022-07-04 | Outpatient (CLI) | payer BC, SELFPAY | END | disposition home or self-care (01) | LOC: LABSPEC 15:28 | PROVIDERS: Referring Provider Nurse Practitioner Women's Health; Visit Provider Nurse Practitioner Women's Health | DX: N89.8 Other specified noninflammatory disorders of vagina (principal) | CPT/HCPCS: 87070; 87205 ==

== ENCOUNTER → 2023-07-26 | Outpatient (CLI) | payer BC, SELFPAY ==
[2023-08-01 20:02] LABS: HPV Reflexed? NOT INDICATED
== END | disposition home or self-care (01) ==
LOC: LABSPEC 13:11
PROVIDERS: Visit Provider Advanced Practice Midwife
DX: Z12.4 Encounter for screening for malignant neoplasm of cervix (principal)
CPT/HCPCS: 88175; G0145